=== PATIENT | female | born 1950 | race Two or more races ===

== ENCOUNTER → 2018-12-20 | Outpatient (CLI) | payer MEDICARE, BC ==
[2018-12-20 08:43] LABS: Urine Bacteria FEW /hpf (None Seen); Urine Blood Negative /uL (Negative); Urine Specific Gravity 1.009 (1.001-1.035); Urine WBC 7 /hpf (0 - 5)
[2018-12-20 09:02] LABS: Albumin 4.1 g/dL (3.4-5.0); Calcium 9.2 mg/dL (8.5-10.1); Uric Acid 6.9 mg/dL (2.6-6.0)
[2018-12-20 09:06] LABS: Bilirubin, Total 0.5 mg/dL (0.2-1.0); Total Protein 7.9 g/dL (6.4-8.2)
[2018-12-20 09:13] LABS: Folate (Folic Acid) 21.09 ng/mL (5.38-24)
[2018-12-20 09:21] LABS: BUN/Creatinine Ratio 19.4
[2018-12-20 11:47] LABS: Potassium 4.3 mmol/L (3.5-5.1)
== END | disposition home or self-care (01) ==
LOC: LAB 07:56
PROVIDERS: ATTEND Nurse Practitioner
DX: E78.5 Hyperlipidemia, unspecified (principal); E55.9 Vitamin D deficiency, unspecified; R79.89 Other specified abnormal findings of blood chemistry
CPT/HCPCS: 36415; 80053; 80061; 81001; 82306; 82607; 82746; 83036; 84443; 84550

== ENCOUNTER → 2019-02-21 | Outpatient (CLI) | payer MEDICARE, BC ==
[2019-02-21 08:44] LABS: Urine Bacteria FEW /hpf (None Seen); Urine Blood Negative /uL (Negative); Urine Specific Gravity 1.009 (1.001-1.035); Urine WBC 11 /hpf (0 - 5)
[2019-02-21 08:54] LABS: Basophils # (auto) 0.1 uL; Basophils % (auto) 1.1 % (0.0-2.0); Eosinophils # (auto) 0.2 uL; Hematocrit 41.5 % (36.0-46.0); Hemoglobin 14.3 g/dL (12.2-16.2); Lymphocytes # (auto) 1.4 uL; Mean Corpuscular Hemoglobin 29.5 pg (28.0-32.0); Mean Corpuscular Hgb Conc. 34.5 g/dL (32.0-36.0); Mean Corpuscular Volume 85.5 fL (80.0-100.0); Monocytes # (auto) 0.3 uL; Monocytes % (auto) 5.5 % (0.0-12.0); Neutrophils # (auto) 3.9 uL; Neutrophils % (auto) 66.4 % (37.0-80.0); Nucleated Red Blood Cells % 0.1 %; Platelet Count (auto) 228 10^3/uL (140-450); Red Blood Cells 4.85 10^6/uL (4.0-5.20); Red Cell Distribution Width 13.6 % (11.8-14.3); White Blood Cell 5.8 10^3/uL (4.4-10.8)
[2019-02-21 09:07] LABS: Albumin 3.8 g/dL (3.4-5.0); Calcium 9.5 mg/dL (8.5-10.1); Potassium 4.2 mmol/L (3.5-5.1)
[2019-02-21 09:13] LABS: BUN/Creatinine Ratio 19.2; Bilirubin, Total 0.5 mg/dL (0.2-1.0); Total Protein 7.8 g/dL (6.4-8.2)
== END | disposition home or self-care (01) ==
LOC: LAB 07:46
PROVIDERS: ATTEND Nurse Practitioner
DX: N39.0 Urinary tract infection, site not specified (principal); E78.5 Hyperlipidemia, unspecified
CPT/HCPCS: 36415; 80053; 80061; 81001; 85025; 87086; 87088; 87186

== ENCOUNTER → 2019-05-16 | Outpatient (CLI) | payer MEDICARE, BC ==
[2019-05-16 11:00] LABS: Free T3 2.84 pg/mL (2.3-4.2); Free T4 (Free Thyroxine) 1.51 ng/dL (0.89-1.76)
[2019-05-16 11:01] LABS: Folate (Folic Acid) 20.27 ng/mL (5.38-24)
[2019-05-16 12:06] LABS: Urine Bacteria FEW /hpf (None Seen); Urine Blood Negative /uL (Negative); Urine Specific Gravity 1.011 (1.001-1.035); Urine WBC 7 /hpf (0 - 5)
== END | disposition home or self-care (01) ==
LOC: LAB 09:27
PROVIDERS: ATTEND Nurse Practitioner
DX: N39.0 Urinary tract infection, site not specified (principal); E78.5 Hyperlipidemia, unspecified
CPT/HCPCS: 36415; 81001; 82607; 82746; 84439; 84443; 84481; 87086; 87088; 87186

== ENCOUNTER 2019-06-27 08:58 | Day surgery (SDC) | payer BC ==
[2019-06-23 13:09] LABS: Basophils # (auto) 0 uL; Basophils % (auto) 0.7 % (0.0-2.0); Eosinophils # (auto) 0.2 uL; Eosinophils % (auto) 2.6 % (0.0-7.0); Hematocrit 45.4 % (36.0-46.0); Hemoglobin 15.5 g/dL (12.2-16.2); Lymphocytes # (auto) 1.4 uL; Lymphocytes % (auto) 23.6 % (10.0-50.0); Mean Corpuscular Hemoglobin 29.1 pg (28.0-32.0); Mean Corpuscular Hgb Conc. 34.2 g/dL (32.0-36.0); Mean Corpuscular Volume 85.1 fL (80.0-100.0); Monocytes # (auto) 0.3 uL; Monocytes % (auto) 4.8 % (0.0-12.0); Neutrophils # (auto) 4.2 uL; Neutrophils % (auto) 68.3 % (37.0-80.0); Platelet Count (auto) 222 10^3/uL (140-450); Red Blood Cells 5.34 10^6/uL (4.0-5.20); White Blood Cell 6.1 10^3/uL (4.4-10.8)
[2019-06-23 13:30] LABS: INR 0.94 (0.9-1.15); Partial Thromboplastin Time 29.2 sec (23.64-32.05)
[~2019-06-27] VITALS: Ht 152.4 cm; Wt 83.9 kg
[2019-06-27] MEDS: fentaNYL CITRATE 100 MCG/2 ML VL ONE ×3 (09:53→10:07)
[2019-06-27] MEDS: MIDAZOLAM HCL 5 MG/ML-1ML VIAL ONE ×3 (09:53→10:07)
[2019-06-27] MEDS ORDERED: SODIUM CHLORIDE LOCK 10 ML ONE (10:07)
[2019-06-27] MEDS ORDERED: diphenhdrAMINE HCL 50 MG/1 ML VL ONE (10:08)
[2019-06-27 11:08] VITALS: BP 129/68
== END 2019-06-27 11:08 | disposition home or self-care (01) ==
LOC: GI 08:58
PROVIDERS: ATTEND Internal Medicine Gastroenterology
DX: K92.1 Melena (principal); K63.5 Polyp of colon; Z79.899 Other long term (current) drug therapy; Z79.82 Long term (current) use of aspirin; Z98.890 Other specified postprocedural states
CPT/HCPCS: 36415; 45385; 85025; 85610; 85730; 88305; 88313; J1200; J2250; J3010; J7030; 99152

== ENCOUNTER → 2019-08-05 | Day surgery (SDC) | payer BC ==
[2019-08-04 13:48] LABS: Basophils # (auto) 0.1 uL; Basophils % (auto) 1.1 % (0.0-2.0); Eosinophils # (auto) 0.1 uL; Hematocrit 43.4 % (36.0-46.0); Lymphocytes # (auto) 1.6 uL; Lymphocytes % (auto) 24.1 % (10.0-50.0); Mean Corpuscular Hemoglobin 29.5 pg (28.0-32.0); Mean Corpuscular Hgb Conc. 34.6 g/dL (32.0-36.0); Mean Corpuscular Volume 85.2 fL (80.0-100.0); Monocytes # (auto) 0.3 uL; Monocytes % (auto) 5.2 % (0.0-12.0); Neutrophils # (auto) 4.4 uL; Neutrophils % (auto) 67.6 % (37.0-80.0); Nucleated Red Blood Cells % 0.2 %; Platelet Count (auto) 266 10^3/uL (140-450); Red Blood Cells 5.09 10^6/uL (4.0-5.20); Red Cell Distribution Width 13.8 % (11.8-14.3); White Blood Cell 6.5 10^3/uL (4.4-10.8)
[2019-08-04 13:50] LABS: Urine Blood Negative /uL (Negative); Urine Specific Gravity 1.013 (1.001-1.035)
[2019-08-04 14:16] LABS: Calcium 9.1 mg/dL (8.5-10.1); Potassium 4.1 mmol/L (3.5-5.1)
[2019-08-04 14:22] LABS: BUN/Creatinine Ratio 14.9; Bilirubin, Total 0.3 mg/dL (0.2-1.0); Total Protein 8.3 g/dL (6.4-8.2)
[2019-08-04 14:38] LABS: INR 0.98 (0.9-1.15); Partial Thromboplastin Time 28.8 sec (23.64-32.05)
[~2019-08-05] VITALS: Ht 154.9 cm; Wt 85.3 kg
[~2019-08-05] MED LIST: AMLO10TA13 PO; ASPI-404 PO; GLYCOPYRROLATE 0.2 MG/ML 1ML VIAL ONE; HYDROmorphone HCL 2 MG/ML VL IV PRN; LEVO125T66 PO; LIDOCAINE 1% HCL (LOCAL ANESTH.) INJ 20ML MDV ONE; LIDOCAINE HCL 2% TOP JELLY 5ML TOP ONE; LIDOCAINE W/ EPINEPHRINE 1% 20ML VIAL ONE; LOSA-39 PO; MECL-87 PO; METOCLOPRAMIDE HCL 5MG/ml INJ 2ml VIAL ONE; MIDAZOLAM HCL 1MG/1ML-2 ML VIAL ONE; MORPHINE SULF(PF) 0.5MG/ML 10ML VIAL ONE; NALOXONE HCL 0.4 MG/ML VIAL IV PRN; NEOSTIGMINE 1 MG/ML INJ (10mg/10ML VIAL) ONE; ONDANSETRON HCL 4 MG/2 ML VIAL IV PRN; PROPOFOL 10 MG/ML 20 ML IV ONE; ROCURONIUM 10MG/ML 10ML VIAL IV ONE; SODIUM CHLORIDE LOCK 10 ML ONE; SUCCINYLCHOLINE CHLORIDE 20 MG/ML 10ML VIAL IV ONE; TRAM50TA2 PO; ceFAZolin 1GM/50ML 50 ML IV ONE; ePHEDrine SULFATE 50 MG/ML AMP IV PRN; ePHEDrine SULFATE 50 MG/ML AMP ONE; fentaNYL CITRATE 100 MCG/2 ML VL ONE
[2019-08-05 10:05] VITALS: BP 111/60
== END | disposition home or self-care (01) ==
LOC: SUR 06:31
PROVIDERS: ATTEND Orthopaedic Surgery
DX: S83.281A Other tear of lateral meniscus, current injury, right knee, initial encounter (principal); S83.241A Other tear of medial meniscus, current injury, right knee, initial encounter; M65.861 Other synovitis and tenosynovitis, right lower leg; E66.9 Obesity, unspecified; M22.41 Chondromalacia patellae, right knee; I10 Essential (primary) hypertension; M19.90 Unspecified osteoarthritis, unspecified site; G47.33 Obstructive sleep apnea (adult) (pediatric); I20.9 Angina pectoris, unspecified; E03.9 Hypothyroidism, unspecified; Z79.899 Other long term (current) drug therapy; Z79.82 Long term (current) use of aspirin; Z90.710 Acquired absence of both cervix and uterus; Z98.890 Other specified postprocedural states; Z68.35 Body mass index [BMI] 35.0-35.9, adult; X58.XXXA Exposure to other specified factors, initial encounter; Y93.89 Activity, other specified; Y92.89 Other specified places as the place of occurrence of the external cause; Y99.8 Other external cause status
CPT/HCPCS: 20610; 29876; 29880; 36415; 80053; 81003; 85025; 85610; 85730; 93005; J0330; J0690; J2001; J2250; J2270; J2704; J2765; J3010

== ENCOUNTER 2019-09-03 08:49 | Emergency (ER) | payer BC ==
[~2019-09-03] VITALS: Ht 154.9 cm; Wt 83.5 kg
[~2019-09-03 08:49] MED LIST changes: -GLYCOPYRROLATE 0.2 MG/ML 1ML VIAL ONE; -HYDROmorphone HCL 2 MG/ML VL IV PRN; -LIDOCAINE 1% HCL (LOCAL ANESTH.) INJ 20ML MDV ONE; -LIDOCAINE HCL 2% TOP JELLY 5ML TOP ONE; -LIDOCAINE W/ EPINEPHRINE 1% 20ML VIAL ONE; -METOCLOPRAMIDE HCL 5MG/ml INJ 2ml VIAL ONE; -MIDAZOLAM HCL 1MG/1ML-2 ML VIAL ONE; -MORPHINE SULF(PF) 0.5MG/ML 10ML VIAL ONE; -NALOXONE HCL 0.4 MG/ML VIAL IV PRN; -NEOSTIGMINE 1 MG/ML INJ (10mg/10ML VIAL) ONE; -ONDANSETRON HCL 4 MG/2 ML VIAL IV PRN; -PROPOFOL 10 MG/ML 20 ML IV ONE; -ROCURONIUM 10MG/ML 10ML VIAL IV ONE; -SODIUM CHLORIDE LOCK 10 ML ONE; -SUCCINYLCHOLINE CHLORIDE 20 MG/ML 10ML VIAL IV ONE; -ceFAZolin 1GM/50ML 50 ML IV ONE; -ePHEDrine SULFATE 50 MG/ML AMP IV PRN; -ePHEDrine SULFATE 50 MG/ML AMP ONE; -fentaNYL CITRATE 100 MCG/2 ML VL ONE
[2019-09-03 08:54] VITALS: BP 151/59
[2019-09-03] MEDS ORDERED: traMADol HCL 50 MG TAB PO ONE (10:30)
== END 2019-09-03 10:33 | disposition home or self-care (01) ==
LOC: ER 08:50
DX: S39.012A Strain of muscle, fascia and tendon of lower back, initial encounter (principal); E78.5 Hyperlipidemia, unspecified
CPT/HCPCS: 72100; 81002

== ENCOUNTER → 2019-09-23 | Outpatient (CLI) | payer BC ==
[2019-09-23 11:19] LABS: Basophils # (auto) 0 uL; Basophils % (auto) 0.8 % (0.0-2.0); Eosinophils # (auto) 0.1 uL; Eosinophils % (auto) 2.7 % (0.0-7.0); Hematocrit 44.9 % (36.0-46.0); Hemoglobin 15.4 g/dL (12.2-16.2); Lymphocytes # (auto) 1.2 uL; Lymphocytes % (auto) 23.5 % (10.0-50.0); Mean Corpuscular Hemoglobin 29.1 pg (28.0-32.0); Mean Corpuscular Hgb Conc. 34.3 g/dL (32.0-36.0); Mean Corpuscular Volume 84.8 fL (80.0-100.0); Monocytes # (auto) 0.3 uL; Monocytes % (auto) 5.1 % (0.0-12.0); Neutrophils # (auto) 3.4 uL; Neutrophils % (auto) 67.9 % (37.0-80.0); Nucleated Red Blood Cells % 0.1 %; Platelet Count (auto) 257 10^3/uL (140-450); Red Blood Cells 5.29 10^6/uL (4.0-5.20); Red Cell Distribution Width 13.7 % (11.8-14.3)
[2019-09-23 11:34] LABS: Calcium 9.4 mg/dL (8.5-10.1); Potassium 4.2 mmol/L (3.5-5.1)
[2019-09-23 11:38] LABS: Bilirubin, Total 0.5 mg/dL (0.2-1.0); Total Protein 8.4 g/dL (6.4-8.2)
[2019-09-23 11:41] LABS: Urine Bacteria MOD /hpf (None Seen); Urine Blood Negative /uL (Negative); Urine Specific Gravity 1.009 (1.001-1.035); Urine WBC 26 /hpf (0 - 5)
== END | disposition home or self-care (01) ==
LOC: LAB 10:59
PROVIDERS: ATTEND Student in an Organized Health Care Education/Training Program
DX: D63.1 Anemia in chronic kidney disease (principal); E21.3 Hyperparathyroidism, unspecified; N18.3 Chronic kidney disease, stage 3 (moderate); M10.9 Gout, unspecified; R80.9 Proteinuria, unspecified; E55.9 Vitamin D deficiency, unspecified
CPT/HCPCS: 36415; 80053; 81001; 82570; 84156; 85025; 87086

== ENCOUNTER → 2020-03-19 | Outpatient (CLI) | payer BC ==
[~2020-03-19] MED LIST changes: -MECL-87 PO; +MECL25TA18 PO
[2020-03-19 10:33] LABS: Basophils # (auto) 0.1 10 ^3/uL (0-0.2); Basophils % (auto) 1.5 % (0.0-2.0); Eosinophils # (auto) 0.2 10 ^3/uL (0-0.8); Eosinophils % (auto) 3.4 % (0.0-7.0); Hematocrit 42.3 % (36.0-46.0); Hemoglobin 14.5 g/dL (12.2-16.2); Lymphocytes # (auto) 1.5 10 ^3/uL (0.4-5.4); Lymphocytes % (auto) 26.4 % (10.0-50.0); Mean Corpuscular Hemoglobin 29.9 pg (28.0-32.0); Mean Corpuscular Hgb Conc. 34.3 g/dL (32.0-36.0); Mean Corpuscular Volume 87.2 fL (80.0-100.0); Monocytes # (auto) 0.4 10 ^3/uL (0-1.3); Monocytes % (auto) 6.2 % (0.0-12.0); Neutrophils # (auto) 3.6 10 ^3/uL (1.6-8.6); Neutrophils % (auto) 62.5 % (37.0-80.0); Nucleated Red Blood Cells % 0.1 %; Platelet Count (auto) 252 10^3/uL (140-450); Red Blood Cells 4.86 10^6/uL (4.0-5.20); Red Cell Distribution Width 14.2 % (11.8-14.3); White Blood Cell 5.7 10^3/uL (4.4-10.8)
[2020-03-19 10:42] LABS: Urine Bacteria FEW /hpf (None Seen); Urine Blood Negative /uL (Negative); Urine Specific Gravity 1.014 (1.001-1.035); Urine WBC 56 /hpf (0 - 5)
[2020-03-19 11:37] LABS: Albumin 3.7 g/dL (3.4-5.0); Calcium 9.3 mg/dL (8.5-10.1); Potassium 4.2 mmol/L (3.5-5.1)
[2020-03-19 11:42] LABS: BUN/Creatinine Ratio 19.6; Bilirubin, Total 0.5 mg/dL (0.2-1.0); Total Protein 7.8 g/dL (6.4-8.2)
== END | disposition home or self-care (01) ==
LOC: LAB 10:09
PROVIDERS: ATTEND Nurse Practitioner
DX: Z00.00 Encounter for general adult medical examination without abnormal findings (principal); E78.5 Hyperlipidemia, unspecified; N39.0 Urinary tract infection, site not specified
CPT/HCPCS: 36415; 80053; 80061; 81001; 84443; 85025; 87086

== ENCOUNTER → 2020-03-22 | Outpatient (CLI) | payer BC ==
[2020-03-22 09:34] LABS: Basophils # (auto) 0 10 ^3/uL (0-0.2); Basophils % (auto) 0.8 % (0.0-2.0); Eosinophils # (auto) 0.2 10 ^3/uL (0-0.8); Eosinophils % (auto) 2.9 % (0.0-7.0); Hematocrit 43.3 % (36.0-46.0); Hemoglobin 14.8 g/dL (12.2-16.2); Lymphocytes # (auto) 1.4 10 ^3/uL (0.4-5.4); Lymphocytes % (auto) 21.3 % (10.0-50.0); Mean Corpuscular Hemoglobin 29.7 pg (28.0-32.0); Mean Corpuscular Hgb Conc. 34.1 g/dL (32.0-36.0); Monocytes # (auto) 0.3 10 ^3/uL (0-1.3); Neutrophils # (auto) 4.6 10 ^3/uL (1.6-8.6); Platelet Count (auto) 244 10^3/uL (140-450); Red Blood Cells 4.98 10^6/uL (4.0-5.20); White Blood Cell 6.6 10^3/uL (4.4-10.8)
[2020-03-22 09:42] LABS: Urine Bacteria FEW /hpf (None Seen); Urine Blood Negative /uL (Negative); Urine Specific Gravity 1.014 (1.001-1.035); Urine WBC 28 /hpf (0 - 5); Urine WBC Clumps PRESENT /hpf (None Seen)
[2020-03-22 09:57] LABS: BUN/Creatinine Ratio 17.6; Calcium 9.4 mg/dL (8.5-10.1); Potassium 4.4 mmol/L (3.5-5.1)
== END | disposition home or self-care (01) ==
LOC: LAB 08:55
PROVIDERS: ATTEND Student in an Organized Health Care Education/Training Program
DX: N18.3 Chronic kidney disease, stage 3 (moderate) (principal); D63.1 Anemia in chronic kidney disease; E56.9 Vitamin deficiency, unspecified; E21.3 Hyperparathyroidism, unspecified; N39.0 Urinary tract infection, site not specified; R82.90 Unspecified abnormal findings in urine
CPT/HCPCS: 36415; 80048; 81001; 82306; 83970; 85025; 87086

== ENCOUNTER 2020-09-28 11:37 | Inpatient (IN) | payer BC ==
[~2020-09-28] VITALS: Ht 154.9 cm; Wt 82.9 kg
[~2020-09-28 11:37] MED LIST changes: -CARI100T PO
[2020-09-28 13:20] LABS: Basophils # (auto) 0.1 10 ^3/uL (0-0.2); Eosinophils # (auto) 0 10 ^3/uL (0-0.8); Hematocrit 45.3 % (36.0-46.0); Lymphocytes # (auto) 1.6 10 ^3/uL (0.4-5.4); Lymphocytes % (auto) 21.7 % (10.0-50.0); Mean Corpuscular Hemoglobin 30.1 pg (28.0-32.0); Mean Corpuscular Hgb Conc. 35.3 g/dL (32.0-36.0); Mean Corpuscular Volume 85.2 fL (80.0-100.0); Monocytes # (auto) 0.4 10 ^3/uL (0-1.3); Monocytes % (auto) 5.4 % (0.0-12.0); Neutrophils # (auto) 5.3 10 ^3/uL (1.6-8.6); Neutrophils % (auto) 71.9 % (37.0-80.0); Nucleated Red Blood Cells % 0.1 %; Platelet Count (auto) 278 10^3/uL (140-450); Red Blood Cells 5.32 10^6/uL (4.0-5.20); Red Cell Distribution Width 13.6 % (11.8-14.3); White Blood Cell 7.4 10^3/uL (4.4-10.8)
[2020-09-28 13:21] LABS: Albumin 4.1 g/dL (3.4-5.0); Anion Gap 8 (5-15); Blood Urea Nitrogen 15 mg/dL (7-18); Calcium 9.3 mg/dL (8.5-10.1); Carbon Dioxide 21 mmol/L (21-32); Chloride 108 mmol/L (98-107); Glucose 96 mg/dL (74-106); Potassium 4.1 mmol/L (3.5-5.1); Sodium 137 mmol/L (136-145)
[2020-09-28 13:30] LABS: Alanine Aminotransferase 21 U/L (13-56); Alkaline Phosphatase 111 U/L (45-117); Aspartate Aminotransferase 12 U/L (15-37); BUN/Creatinine Ratio 12.4; Bilirubin, Total 0.5 mg/dL (0.2-1.0); GFR African American 57 mL/min; GFR Non-African American 47 mL/min; Total Protein 8.7 g/dL (6.4-8.2)
[2020-09-28] MEDS ORDERED: ASPirin 81 mg TAB PO ONE (14:30)
[2020-09-28] MEDS ORDERED: MORPHINE SULF INJ 2 MG/ML SYRINGE 1ML IV PRN (14:30)
[2020-09-28] MEDS ORDERED: HYDROcodone-ACET 5/325MG TAB PO PRN (14:30)
[2020-09-28] MEDS ORDERED: NITROGLYCERIN 0.4 MG SL TAB SL PRN (14:30)
[2020-09-28] MEDS ORDERED: ONDANSETRON HCL 4 MG/2 ML VIAL IV PRN (14:30)
[2020-09-28] MEDS ORDERED: hydrALAZINE HCL 20 MG/ML VL IV PRN (14:30)
[2020-09-28] MEDS ORDERED: CARI100T PO (15:13)
[2020-09-28 15:54] LABS: CRP High Sensitivity 0.84 mg/dL (< 0.3)
[2020-09-28 22:00] VITALS: BP 131/58
[2020-09-28 22:15] VITALS: BP 131/58
[2020-09-28] MEDS: ATORVASTATIN 20 MG TAB PO SCH (23:00)
[2020-09-28] MEDS: DOCUSATE SOD 100 MG CAP PO SCH (23:01)
[2020-09-28] MEDS: METOPROLOL TARTRATE 25 MG TAB PO SCH (23:01)
[2020-09-29 05:00] VITALS: BP 112/59
[2020-09-29 07:08] LABS: Potassium 4.3 mmol/L (3.5-5.1)
[2020-09-29 07:15] LABS: BUN/Creatinine Ratio 18.5; Calcium 8.8 mg/dL (8.5-10.1)
[2020-09-29 07:41] LABS: Basophils # (auto) 0.1 10 ^3/uL (0-0.2); Basophils % (auto) 1.2 % (0.0-2.0); Eosinophils # (auto) 0 10 ^3/uL (0-0.8); Eosinophils % (auto) 0.1 % (0.0-7.0); Hemoglobin 15.5 g/dL (12.2-16.2); Lymphocytes # (auto) 2.1 10 ^3/uL (0.4-5.4); Lymphocytes % (auto) 35.4 % (10.0-50.0); Mean Corpuscular Hemoglobin 29.5 pg (28.0-32.0); Mean Corpuscular Hgb Conc. 34.5 g/dL (32.0-36.0); Mean Corpuscular Volume 85.7 fL (80.0-100.0); Monocytes # (auto) 0.4 10 ^3/uL (0-1.3); Monocytes % (auto) 6.5 % (0.0-12.0); Neutrophils # (auto) 3.4 10 ^3/uL (1.6-8.6); Neutrophils % (auto) 56.8 % (37.0-80.0); Nucleated Red Blood Cells % 0.1 %; Platelet Count (auto) 250 10^3/uL (140-450); Red Blood Cells 5.26 10^6/uL (4.0-5.20); Red Cell Distribution Width 13.4 % (11.8-14.3)
[2020-09-29 08:00] VITALS: BP 135/55
[2020-09-29] MEDS ORDERED: ADENOSINE 66 MG in GIVE UN-DILUTED 0 ML IV STA (08:15)
[2020-09-29 08:34] LABS: INR 0.98 (0.9-1.15); Partial Thromboplastin Time 30.4 sec (23.0-31.2)
[2020-09-29] MEDS: DOCUSATE SOD 100 MG CAP PO SCH ×2 (10:00→11:58)
[2020-09-29] MEDS: FAMOTIDINE 20 MG TAB PO SCH (11:59)
[2020-09-29] MEDS: ASPirin-EC 81 mg tab PO SCH (11:59)
[2020-09-29] MEDS: ACETAMINOPHEN 500 MG TAB PO PRN (12:00)
[2020-09-29] MEDS: METOPROLOL TARTRATE 25 MG TAB PO SCH (12:07)
[2020-09-29] MEDS: LISINOPRIL 10 MG TAB PO SCH (12:07)
[2020-09-29] MEDS: NITROGLYCERIN 0.4MG/HR TOPICAL PATCH TD SCH (12:08)
[2020-09-29] MEDS: SODIUM CHLORIDE 0.9% 1,000 ML IV SCH ×2 (13:00→22:29)
[2020-09-29 14:58] LABS: Urine Bacteria NONE SEEN /hpf (None Seen); Urine Blood Negative /uL (Negative); Urine Hyaline Cast FEW /lpf (0 - 2); Urine Specific Gravity 1.012 (1.001-1.035); Urine WBC 1 /hpf (0 - 5)
[2020-09-29 15:28] LABS: Creatinine, Urine 46 mg/dL (30.0-125.0); Sodium Urine 123 mmol/L (40-220)
[2020-09-29 15:59] VITALS: BP 115/50
[2020-09-29] MEDS: ACETAMINOPHEN/CODEINE#3 (300/30mg) TAB PO PRN (17:30)
[2020-09-29] MEDS ORDERED: diphenhdrAMINE HCL 25 MG CAP PO PRN (18:00)
[2020-09-29] MEDS: ATORVASTATIN 20 MG TAB PO SCH (22:27)
[2020-09-30] MEDS: MORPHINE SULF INJ 2 MG/ML SYRINGE 1ML IV PRN ×2 (00:06→09:36)
[2020-09-30 00:25] VITALS: BP 101/63
[2020-09-30] MEDS: ACETAMINOPHEN/CODEINE#3 (300/30mg) TAB PO PRN (02:32)
[2020-09-30 05:00] VITALS: BP 102/49
[2020-09-30 06:00] VITALS: BP 123/78
[2020-09-30] MEDS: ASPirin-EC 81 mg tab PO SCH (10:00)
[2020-09-30] MEDS: FAMOTIDINE 20 MG TAB PO SCH (10:00)
[2020-09-30] MEDS: LISINOPRIL 10 MG TAB PO SCH (10:00)
[2020-09-30] MEDS ORDERED: METOPROLOL TARTRATE 25 MG TAB PO SCH (10:00)
[2020-09-30] MEDS: NITROGLYCERIN 0.4MG/HR TOPICAL PATCH TD SCH (10:00)
[2020-09-30] MEDS: DOCUSATE SOD 100 MG CAP PO SCH (10:00)
[2020-09-30] MEDS ORDERED: LIDOCAINE 2%HCL (LOCAL ANESTH.) INJ 20ML MDV ONE (11:42)
[2020-09-30] MEDS ORDERED: diphenhdrAMINE HCL 50 MG/1 ML VL ONE (12:06)
[2020-09-30] MEDS ORDERED: fentaNYL CITRATE 100 MCG/2 ML VL ONE (12:06)
[2020-09-30] MEDS ORDERED: VERAPAMIL 2.5MG/ML INJ 2ML VIAL IV ONE (12:29)
[2020-09-30] MEDS ORDERED: HEPARIN SODIUM (PORCINE) 5000 UNITS/ML 1ML VIAL ONE (12:29)
[2020-09-30] MEDS ORDERED: IOHEXOL 350 MG/ML 100ML IJ ONE (12:33)
[2020-09-30] MEDS ORDERED: SODIUM CHLORIDE 0.9% 500 ML IV ONE (13:45)
[2020-09-30] MEDS: ACETAMINOPHEN 500 MG TAB PO PRN (15:08)
[2020-09-30 15:23] VITALS: BP 123/78
[2020-09-30] MEDS: SODIUM CHLORIDE 0.9% 1,000 ML IV SCH (15:40)
== END 2020-09-30 17:30 | disposition home or self-care (01) | DRG 287 ==
LOC: ER 11:37 → TELE 11:38 → TELE-CENTR 21:47
PROVIDERS: ADMIT Nurse Practitioner Acute Care; ATTEND Internal Medicine
PROC: 05HA33Z Insertion of Infusion Device into Left Brachial Vein, Percutaneous Approach (ICD-10-PCS; 2020-09-29)
PROC: B54NZZA Ultrasonography of Left Upper Extremity Veins, Guidance (ICD-10-PCS; 2020-09-29)
PROC: 4A023N7 Measurement of Cardiac Sampling and Pressure, Left Heart, Percutaneous Approach (ICD-10-PCS; principal; 2020-09-30)
PROC: B2111ZZ Fluoroscopy of Multiple Coronary Arteries using Low Osmolar Contrast (ICD-10-PCS; 2020-09-30)
PROC: B2151ZZ Fluoroscopy of Left Heart using Low Osmolar Contrast (ICD-10-PCS; 2020-09-30)
DX: I24.9 Acute ischemic heart disease, unspecified (principal); E03.9 Hypothyroidism, unspecified; N18.31 Chronic kidney disease, stage 3a; E66.9 Obesity, unspecified; E78.5 Hyperlipidemia, unspecified; I12.9 Hypertensive chronic kidney disease with stage 1 through stage 4 chronic kidney disease, or unspecified chronic kidney disease; Z20.822 Contact with and (suspected) exposure to COVID-19; Z80.3 Family history of malignant neoplasm of breast; Z85.828 Personal history of other malignant neoplasm of skin; Z90.5 Acquired absence of kidney; Z90.710 Acquired absence of both cervix and uterus; Z90.49 Acquired absence of other specified parts of digestive tract; Z68.32 Body mass index [BMI] 32.0-32.9, adult; Z88.8 Allergy status to other drugs, medicaments and biological substances
CPT/HCPCS: 36415; 71045; 78452; 80048; 80053; 80061; 81001; 82570; 83036; 83880; 84300; 84443; 84484; 85025; 85379; 85610; 85730; 86141; 87426; 93005; 93017; 93306; 99152; G0378; J0153

== ENCOUNTER → 2020-09-28 | Outpatient (CLI) | payer BC ==
[~2020-09-28] MED LIST changes: +AMLO-496 PO; -AMLO10TA13 PO; -ASPI-404 PO; +ASPI-543 PO; +CARI100T PO; +LEVO125T PO; -LEVO125T66 PO
[2020-09-28 11:13] LABS: Basophils # (auto) 0 10 ^3/uL (0-0.2); Basophils % (auto) 0.7 % (0.0-2.0); Eosinophils # (auto) 0 10 ^3/uL (0-0.8); Hemoglobin 15.2 g/dL (12.2-16.2); Lymphocytes # (auto) 1.4 10 ^3/uL (0.4-5.4); Lymphocytes % (auto) 23.5 % (10.0-50.0); Mean Corpuscular Hemoglobin 29.9 pg (28.0-32.0); Mean Corpuscular Hgb Conc. 34.6 g/dL (32.0-36.0); Mean Corpuscular Volume 86.2 fL (80.0-100.0); Monocytes # (auto) 0.3 10 ^3/uL (0-1.3); Monocytes % (auto) 5.1 % (0.0-12.0); Neutrophils # (auto) 4.2 10 ^3/uL (1.6-8.6); Neutrophils % (auto) 70.7 % (37.0-80.0); Nucleated Red Blood Cells % 0.2 %; Platelet Count (auto) 275 10^3/uL (140-450); Red Blood Cells 5.11 10^6/uL (4.0-5.20); Red Cell Distribution Width 13.2 % (11.8-14.3); White Blood Cell 5.9 10^3/uL (4.4-10.8)
[2020-09-28 12:11] LABS: Albumin 3.9 g/dL (3.4-5.0); Calcium 9.1 mg/dL (8.5-10.1); Potassium 4.3 mmol/L (3.5-5.1)
[2020-09-28 12:15] LABS: BUN/Creatinine Ratio 12.4; Bilirubin, Total 0.5 mg/dL (0.2-1.0); Phosphorus 3.2 mg/dL (2.5-4.90); Total Protein 8.5 g/dL (6.4-8.2); Uric Acid 6.7 mg/dL (2.6-6.0)
== END | disposition home or self-care (01) ==
LOC: LAB 10:36
PROVIDERS: ATTEND Internal Medicine Nephrology
DX: N18.30 Chronic kidney disease, stage 3 unspecified (principal); D63.1 Anemia in chronic kidney disease; E21.3 Hyperparathyroidism, unspecified; M10.9 Gout, unspecified
CPT/HCPCS: 36415; 80053; 80069; 82306; 83970; 84550; 85025

== ENCOUNTER → 2020-12-03 | Outpatient (CLI) | payer BC ==
[~2020-12-03] MED LIST changes: +CARI100T PO; -MECL25TA18 PO
[2020-12-03 16:02] LABS: BUN/Creatinine Ratio 12.5; Calcium 9.3 mg/dL (8.5-10.1); Potassium 3.9 mmol/L (3.5-5.1)
== END | disposition home or self-care (01) ==
LOC: LAB 14:03
PROVIDERS: ATTEND Student in an Organized Health Care Education/Training Program
DX: N39.0 Urinary tract infection, site not specified (principal); M25.50 Pain in unspecified joint
CPT/HCPCS: 36415; 80048; 87086

== ENCOUNTER → 2021-03-18 | Outpatient (CLI) | payer MEDICARE, OTHER ==
[2021-03-18 15:03] LABS: BUN/Creatinine Ratio 19.1; Calcium 9.6 mg/dL (8.5-10.1); Potassium 4.3 mmol/L (3.5-5.1)
== END | disposition home or self-care (01) ==
LOC: LAB 13:54
PROVIDERS: ATTEND Student in an Organized Health Care Education/Training Program
DX: N39.0 Urinary tract infection, site not specified (principal); E03.8 Other specified hypothyroidism
CPT/HCPCS: 36415; 80048; 84443; 87086

== ENCOUNTER → 2021-08-06 | Outpatient (CLI) | payer OTHER, MEDICARE ==
[2021-08-06 11:32] LABS: Basophils # (auto) 0.1 10 ^3/uL (0-0.2); Basophils % (auto) 1.5 % (0.0-2.0); Eosinophils # (auto) 0.2 10 ^3/uL (0-0.8); Eosinophils % (auto) 3.5 % (0.0-7.0); Hematocrit 43.4 % (36.0-46.0); Hemoglobin 14.9 g/dL (12.2-16.2); Lymphocytes # (auto) 1.3 10 ^3/uL (0.4-5.4); Lymphocytes % (auto) 24.7 % (10.0-50.0); Mean Corpuscular Hemoglobin 29.2 pg (28.0-32.0); Mean Corpuscular Hgb Conc. 34.2 g/dL (32.0-36.0); Mean Corpuscular Volume 85.3 fL (80.0-100.0); Monocytes # (auto) 0.3 10 ^3/uL (0-1.3); Monocytes % (auto) 6.2 % (0.0-12.0); Neutrophils # (auto) 3.3 10 ^3/uL (1.6-8.6); Neutrophils % (auto) 64.1 % (37.0-80.0); Nucleated Red Blood Cells % 0.1 %; Red Blood Cells 5.09 10^6/uL (4.0-5.20); Red Cell Distribution Width 13.8 % (11.8-14.3); White Blood Cell 5.2 10^3/uL (4.4-10.8)
[2021-08-06 11:46] LABS: Albumin 3.9 g/dL (3.4-5.0); Calcium 8.8 mg/dL (8.5-10.1); Potassium 4.1 mmol/L (3.5-5.1)
[2021-08-06 11:50] LABS: BUN/Creatinine Ratio 15.7; Bilirubin, Total 0.5 mg/dL (0.2-1.0); Total Protein 7.7 g/dL (6.4-8.2)
== END | disposition home or self-care (01) ==
LOC: LAB 10:15
PROVIDERS: ATTEND Student in an Organized Health Care Education/Training Program
DX: I10 Essential (primary) hypertension (principal); E03.8 Other specified hypothyroidism; N39.0 Urinary tract infection, site not specified
CPT/HCPCS: 36415; 80053; 84443; 85025; 87086

== ENCOUNTER → 2021-08-15 | Outpatient (CLI) | payer OTHER ==
[2021-08-15 12:17] LABS: Basophils # (auto) 0.1 10 ^3/uL (0-0.2); Eosinophils # (auto) 0.2 10 ^3/uL (0-0.8); Eosinophils % (auto) 2.7 % (0.0-7.0); Hematocrit 43.8 % (36.0-46.0); Hemoglobin 14.9 g/dL (12.2-16.2); Lymphocytes # (auto) 1.3 10 ^3/uL (0.4-5.4); Lymphocytes % (auto) 22.7 % (10.0-50.0); Mean Corpuscular Hemoglobin 28.7 pg (28.0-32.0); Mean Corpuscular Volume 84.3 fL (80.0-100.0); Monocytes # (auto) 0.3 10 ^3/uL (0-1.3); Monocytes % (auto) 4.7 % (0.0-12.0); Neutrophils % (auto) 68.9 % (37.0-80.0); Nucleated Red Blood Cells % 0.1 %; Red Cell Distribution Width 13.9 % (11.8-14.3); White Blood Cell 5.8 10^3/uL (4.4-10.8)
[2021-08-15 12:30] LABS: INR 1.01 (0.9-1.15); Partial Thromboplastin Time 28.1 sec (23.6-33.0)
[2021-08-15 12:37] LABS: Calcium 9.1 mg/dL (8.5-10.1); Potassium 4.2 mmol/L (3.5-5.1)
[2021-08-15 12:39] LABS: BUN/Creatinine Ratio 18.9; Bilirubin, Total 0.5 mg/dL (0.2-1.0); Total Protein 7.7 g/dL (6.4-8.2)
[2021-08-15 13:35] LABS: Urine Bacteria FEW /hpf (None Seen); Urine Blood Negative /uL (Negative); Urine Specific Gravity 1.013 (1.001-1.035); Urine WBC <1 /hpf (0 - 5)
== END | disposition home or self-care (01) ==
LOC: SUR 11:45 → EDSTATUS 08-18 10:31 → SUR 08-18 10:32
PROVIDERS: ATTEND Urology
DX: N35.92 Unspecified urethral stricture, female (principal); Z53.8 Procedure and treatment not carried out for other reasons; Z90.710 Acquired absence of both cervix and uterus; Z80.3 Family history of malignant neoplasm of breast; Z20.822 Contact with and (suspected) exposure to COVID-19
CPT/HCPCS: 36415; 80053; 81001; 85025; 85610; 85730; U0003

== ENCOUNTER → 2021-09-15 | Day surgery (SDC) | payer OTHER ==
[2021-09-12 11:41] LABS: Basophils # (auto) 0.1 10 ^3/uL (0-0.2); Eosinophils # (auto) 0.1 10 ^3/uL (0-0.8); Eosinophils % (auto) 2.3 % (0.0-7.0); Hematocrit 41.8 % (36.0-46.0); Hemoglobin 14.2 g/dL (12.2-16.2); Lymphocytes # (auto) 1.3 10 ^3/uL (0.4-5.4); Lymphocytes % (auto) 21.4 % (10.0-50.0); Mean Corpuscular Hemoglobin 28.9 pg (28.0-32.0); Mean Corpuscular Hgb Conc. 34.1 g/dL (32.0-36.0); Mean Corpuscular Volume 84.8 fL (80.0-100.0); Monocytes # (auto) 0.4 10 ^3/uL (0-1.3); Monocytes % (auto) 6.3 % (0.0-12.0); Neutrophils # (auto) 4.4 10 ^3/uL (1.6-8.6); Nucleated Red Blood Cells % 0.1 %; Red Blood Cells 4.92 10^6/uL (4.0-5.20); Red Cell Distribution Width 13.6 % (11.8-14.3); White Blood Cell 6.3 10^3/uL (4.4-10.8)
[2021-09-12 12:02] LABS: Urine Bacteria NONE SEEN /hpf (None Seen); Urine Blood Negative /uL (Negative); Urine Specific Gravity 1.019 (1.001-1.035); Urine WBC 40 /hpf (0 - 5)
[2021-09-12 12:44] LABS: Potassium 4.3 mmol/L (3.5-5.1)
[2021-09-12 13:01] LABS: Albumin 4.1 g/dL (3.4-5.0); BUN/Creatinine Ratio 16.1; Bilirubin, Total 0.3 mg/dL (0.2-1.0); Total Protein 7.8 g/dL (6.4-8.2)
[~2021-09-15] VITALS: Ht 152.4 cm; Wt 90.3 kg
[~2021-09-15] MED LIST changes: +CHOL20007 PO; +CYAN1TAB14 PO; +HYDROmorphone HCL 2 MG/ML VL IV PRN; +METOCLOPRAMIDE HCL 5MG/ml INJ 2ml VIAL IV PRN; +MIDAZOLAM HCL 2MG/2ML 2ml VIAL (1mg/ml) ONE; +MORPHINE SULFATE 4 MG/ML SYR/VIAL IV PRN; +ONDANSETRON HCL 4 MG/2 ML VIAL ONE; +PROPOFOL 10 MG/ML 20 ML IV ONE; +SODIUM CHLORIDE LOCK 10 ML ONE; +ceFAZolin 1GM/50ML 100 ML IV ONE; +fentaNYL CITRATE 100 MCG/2 ML VL ONE
[2021-09-15 14:45] VITALS: BP 135/70
== END | disposition home or self-care (01) ==
LOC: SUR 07:34
PROVIDERS: ATTEND Urology
DX: N34.3 Urethral syndrome, unspecified (principal); N35.92 Unspecified urethral stricture, female; I10 Essential (primary) hypertension; I25.110 Atherosclerotic heart disease of native coronary artery with unstable angina pectoris; E66.01 Morbid (severe) obesity due to excess calories; E03.9 Hypothyroidism, unspecified; Z98.890 Other specified postprocedural states; Z90.710 Acquired absence of both cervix and uterus; Z80.3 Family history of malignant neoplasm of breast; Z79.899 Other long term (current) drug therapy; Z20.822 Contact with and (suspected) exposure to COVID-19; Z68.38 Body mass index [BMI] 38.0-38.9, adult
CPT/HCPCS: 36415; 52276; 80053; 81001; 85025; J0690; J2405; J2704; J3010; U0003; J2250

== ENCOUNTER → 2021-11-11 | Outpatient (CLI) | payer OTHER, MEDICARE ==
[~2021-11-11] MED LIST changes: -HYDROmorphone HCL 2 MG/ML VL IV PRN; -METOCLOPRAMIDE HCL 5MG/ml INJ 2ml VIAL IV PRN; -MIDAZOLAM HCL 2MG/2ML 2ml VIAL (1mg/ml) ONE; -MORPHINE SULFATE 4 MG/ML SYR/VIAL IV PRN; -ONDANSETRON HCL 4 MG/2 ML VIAL ONE; -PROPOFOL 10 MG/ML 20 ML IV ONE; -SODIUM CHLORIDE LOCK 10 ML ONE; -ceFAZolin 1GM/50ML 100 ML IV ONE; -fentaNYL CITRATE 100 MCG/2 ML VL ONE
[2021-11-11 11:21] LABS: Urine Blood Negative /uL (Negative); Urine Specific Gravity 1.011 (1.001-1.035)
[2021-11-11 11:26] LABS: Basophils # (auto) 0 10 ^3/uL (0-0.2); Basophils % (auto) 0.9 % (0.0-2.0); Eosinophils # (auto) 0.2 10 ^3/uL (0-0.8); Eosinophils % (auto) 3.6 % (0.0-7.0); Hematocrit 41.3 % (36.0-46.0); Hemoglobin 14.2 g/dL (12.2-16.2); Lymphocytes # (auto) 1.2 10 ^3/uL (0.4-5.4); Lymphocytes % (auto) 22.2 % (10.0-50.0); Mean Corpuscular Hemoglobin 29.4 pg (28.0-32.0); Mean Corpuscular Hgb Conc. 34.5 g/dL (32.0-36.0); Mean Corpuscular Volume 85.2 fL (80.0-100.0); Monocytes # (auto) 0.3 10 ^3/uL (0-1.3); Monocytes % (auto) 5.5 % (0.0-12.0); Neutrophils # (auto) 3.7 10 ^3/uL (1.6-8.6); Neutrophils % (auto) 67.8 % (37.0-80.0); Nucleated Red Blood Cells % 0.1 %; Red Blood Cells 4.85 10^6/uL (4.0-5.20); Red Cell Distribution Width 13.5 % (11.8-14.3); White Blood Cell 5.5 10^3/uL (4.4-10.8)
[2021-11-11 12:22] LABS: Potassium 4.1 mmol/L (3.5-5.1)
[2021-11-11 12:30] LABS: Albumin 3.7 g/dL (3.4-5.0); BUN/Creatinine Ratio 19.8; Bilirubin, Total 0.4 mg/dL (0.2-1.0); Calcium 9.5 mg/dL (8.5-10.1); Creatinine, Urine 64 mg/dL (30.0-125.0); Protein, Urine 10.7 mg/dL (0.0-11.9); Total Protein 7.6 g/dL (6.4-8.2)
[2021-11-11 16:55] LABS: Urine Bacteria FEW /hpf (None Seen); Urine Blood Negative /uL (Negative); Urine Mucus FEW (None Seen); Urine Specific Gravity 1.012 (1.001-1.035); Urine WBC 1 /hpf (0 - 5)
== END | disposition home or self-care (01) ==
LOC: LAB 09:42
PROVIDERS: ATTEND Student in an Organized Health Care Education/Training Program
DX: N18.30 Chronic kidney disease, stage 3 unspecified (principal); D63.1 Anemia in chronic kidney disease; M10.9 Gout, unspecified; R80.9 Proteinuria, unspecified; R70.0 Elevated erythrocyte sedimentation rate; E21.3 Hyperparathyroidism, unspecified
CPT/HCPCS: 36415; 80053; 80061; 81001; 81003; 82570; 84156; 84443; 85025; 85652; 87086

== ENCOUNTER → 2022-05-22 | Outpatient (CLI) | payer OTHER ==
[2022-05-22 10:16] LABS: Basophils # (auto) 0.1 10 ^3/uL (0-0.2); Basophils % (auto) 0.8 % (0.0-2.0); Eosinophils # (auto) 0.2 10 ^3/uL (0-0.8); Eosinophils % (auto) 2.5 % (0.0-7.0); Hematocrit 43.2 % (36.0-46.0); Hemoglobin 14.4 g/dL (12.2-16.2); Lymphocytes # (auto) 1.3 10 ^3/uL (0.4-5.4); Lymphocytes % (auto) 17.2 % (10.0-50.0); Mean Corpuscular Hemoglobin 28.6 pg (28.0-32.0); Mean Corpuscular Hgb Conc. 33.4 g/dL (32.0-36.0); Mean Corpuscular Volume 85.6 fL (80.0-100.0); Monocytes # (auto) 0.4 10 ^3/uL (0-1.3); Monocytes % (auto) 4.8 % (0.0-12.0); Neutrophils # (auto) 5.5 10 ^3/uL (1.6-8.6); Neutrophils % (auto) 74.7 % (37.0-80.0); Nucleated Red Blood Cells % 0.1 %; Red Blood Cells 5.04 10^6/uL (4.0-5.20); White Blood Cell 7.4 10^3/uL (4.4-10.8)
[2022-05-22 10:17] LABS: Urine Bacteria FEW /hpf (None Seen); Urine Blood Negative /uL (Negative); Urine Specific Gravity 1.016 (1.001-1.035); Urine WBC 3 /hpf (0 - 5)
[2022-05-22 10:39] LABS: Calcium 9.3 mg/dL (8.5-10.1); Potassium 3.9 mmol/L (3.5-5.1)
[2022-05-22 10:52] LABS: BUN/Creatinine Ratio 18.3; Bilirubin, Total 0.5 mg/dL (0.2-1.0); CRP High Sensitivity 1.38 mg/dL (< 0.3); Total Protein 7.8 g/dL (6.4-8.2)
== END | disposition home or self-care (01) ==
LOC: LAB 09:39
PROVIDERS: ATTEND Student in an Organized Health Care Education/Training Program
DX: N18.30 Chronic kidney disease, stage 3 unspecified (principal); E03.8 Other specified hypothyroidism; N39.0 Urinary tract infection, site not specified; E07.89 Other specified disorders of thyroid
CPT/HCPCS: 36415; 80053; 80061; 81001; 84443; 85025; 85652; 86141; 87086

== ENCOUNTER → 2022-08-17 | Outpatient (CLI) | payer OTHER ==
[2022-08-17 10:03] LABS: Basophils # (auto) 0.1 10 ^3/uL (0-0.2); Basophils % (auto) 1.2 % (0.0-2.0); Eosinophils # (auto) 0.1 10 ^3/uL (0-0.8); Eosinophils % (auto) 2.6 % (0.0-7.0); Hematocrit 43.5 % (36.0-46.0); Hemoglobin 14.7 g/dL (12.2-16.2); Lymphocytes # (auto) 1.2 10 ^3/uL (0.4-5.4); Lymphocytes % (auto) 22.1 % (10.0-50.0); Mean Corpuscular Hemoglobin 29.2 pg (28.0-32.0); Mean Corpuscular Hgb Conc. 33.8 g/dL (32.0-36.0); Mean Corpuscular Volume 86.2 fL (80.0-100.0); Monocytes # (auto) 0.4 10 ^3/uL (0-1.3); Monocytes % (auto) 6.8 % (0.0-12.0); Neutrophils # (auto) 3.8 10 ^3/uL (1.6-8.6); Neutrophils % (auto) 67.3 % (37.0-80.0); Nucleated Red Blood Cells % 0.1 %; Red Blood Cells 5.06 10^6/uL (4.0-5.20); Red Cell Distribution Width 13.6 % (11.8-14.3); White Blood Cell 5.7 10^3/uL (4.4-10.8)
[2022-08-17 10:40] LABS: Albumin 3.6 g/dL (3.4-5.0); Calcium 9.1 mg/dL (8.5-10.1)
[2022-08-17 10:50] LABS: Bilirubin, Total 0.4 mg/dL (0.2-1.0); Total Protein 7.6 g/dL (6.4-8.2)
[2022-08-17 12:32] LABS: BUN/Creatinine Ratio 17.8
== END | disposition home or self-care (01) ==
LOC: LAB 09:42
PROVIDERS: ATTEND Student in an Organized Health Care Education/Training Program
DX: L40.50 Arthropathic psoriasis, unspecified (principal); N39.0 Urinary tract infection, site not specified; Z79.899 Other long term (current) drug therapy
CPT/HCPCS: 36415; 80053; 85025; 86141; 87086

== ENCOUNTER → 2023-01-02 | Outpatient (CLI) | payer OTHER ==
[2023-01-02 10:18] LABS: Urine Bacteria NONE SEEN /hpf (None Seen); Urine Blood Negative /uL (Negative); Urine Specific Gravity 1.014 (1.001-1.035); Urine WBC 2 /hpf (0 - 5)
[2023-01-02 10:29] LABS: Basophils # (auto) 0 10 ^3/uL (0-0.2); Basophils % (auto) 0.7 % (0.0-2.0); Eosinophils # (auto) 0.1 10 ^3/uL (0-0.8); Eosinophils % (auto) 2.5 % (0.0-7.0); Hematocrit 43.5 % (36.0-46.0); Hemoglobin 14.8 g/dL (12.2-16.2); Lymphocytes # (auto) 1.5 10 ^3/uL (0.4-5.4); Lymphocytes % (auto) 27.2 % (10.0-50.0); Mean Corpuscular Hemoglobin 28.7 pg (28.0-32.0); Mean Corpuscular Hgb Conc. 33.9 g/dL (32.0-36.0); Mean Corpuscular Volume 84.7 fL (80.0-100.0); Monocytes # (auto) 0.3 10 ^3/uL (0-1.3); Monocytes % (auto) 4.9 % (0.0-12.0); Neutrophils # (auto) 3.6 10 ^3/uL (1.6-8.6); Neutrophils % (auto) 64.7 % (37.0-80.0); Nucleated Red Blood Cells % 0.4 %; Red Blood Cells 5.14 10^6/uL (4.0-5.20); Red Cell Distribution Width 13.7 % (11.8-14.3); White Blood Cell 5.5 10^3/uL (4.4-10.8)
[2023-01-02 11:19] LABS: BUN/Creatinine Ratio 19.6 (10.0-20.0); Calcium 9.5 mg/dL (8.5-10.1); Potassium 4.4 mmol/L (3.5-5.1)
[2023-01-02 11:22] LABS: Bilirubin, Total 0.4 mg/dL (0.2-1.0)
== END | disposition home or self-care (01) ==
LOC: LAB 09:39
PROVIDERS: ATTEND Student in an Organized Health Care Education/Training Program
DX: I10 Essential (primary) hypertension (principal); N39.0 Urinary tract infection, site not specified; R73.9 Hyperglycemia, unspecified
CPT/HCPCS: 36415; 80053; 80061; 81001; 83036; 85025; 87086

== ENCOUNTER → 2023-06-25 | Outpatient (CLI) | payer OTHER ==
[~2023-06-25] MED LIST changes: -AMLO-496 PO; +AMLO1TAB23 PO; -LOSA-39 PO; +LOSA100T58 PO
[2023-06-25 15:34] LABS: Basophils # (auto) 0.1 10 ^3/uL (0-0.2); Basophils % (auto) 0.9 % (0.0-2.0); Eosinophils # (auto) 0.3 10 ^3/uL (0-0.8); Eosinophils % (auto) 3.9 % (0.0-7.0); Hematocrit 43.2 % (36.0-46.0); Hemoglobin 14.7 g/dL (12.2-16.2); Lymphocytes # (auto) 1.9 10 ^3/uL (0.4-5.4); Lymphocytes % (auto) 25.5 % (10.0-50.0); Mean Corpuscular Hemoglobin 28.7 pg (28.0-32.0); Mean Corpuscular Hgb Conc. 33.9 g/dL (32.0-36.0); Mean Corpuscular Volume 84.7 fL (80.0-100.0); Monocytes # (auto) 0.5 10 ^3/uL (0-1.3); Neutrophils # (auto) 4.6 10 ^3/uL (1.6-8.6); Neutrophils % (auto) 62.7 % (37.0-80.0); Nucleated Red Blood Cells % 0.2 %; Red Cell Distribution Width 14.4 % (11.8-14.3); White Blood Cell 7.3 10^3/uL (4.4-10.8)
[2023-06-25 15:55] LABS: Urine Bacteria FEW /hpf (None Seen); Urine Blood Negative /uL (Negative); Urine Clarity Clear (Clear); Urine Color Yellow (Yellow); Urine Protein, UAD Negative (Negative); Urine Specific Gravity 1.014 (1.001-1.035); Urine Urobilinogen Normal (Negative); Urine WBC 8 /hpf (0 - 5); Urine pH 5.5 (5.0-8.0)
[2023-06-25 16:06] LABS: Alanine Aminotransferase 12 U/L (7-40); Albumin 4.6 g/dL (3.2-4.8); Alkaline Phosphatase 121 U/L (46-116); Anion Gap 6 (5-15); Aspartate Aminotransferase < 8 U/L (13-40); Blood Urea Nitrogen 17 mg/dL (9-23); Calcium 9.8 mg/dL (8.7-10.4); Carbon Dioxide 27 mmol/L (20-30); Chloride 104 mmol/L (98-107); Glucose 118 mg/dL (74-106); Potassium 4.4 mmol/L (3.5-5.1); Sodium 137 mmol/L (136-145)
[2023-06-25 16:07] LABS: Bilirubin, Total 0.3 mg/dL (0.2-1.0)
== END | disposition home or self-care (01) ==
LOC: LAB 15:21
PROVIDERS: ATTEND Student in an Organized Health Care Education/Training Program
DX: I12.9 Hypertensive chronic kidney disease with stage 1 through stage 4 chronic kidney disease, or unspecified chronic kidney disease (principal); N18.30 Chronic kidney disease, stage 3 unspecified; E03.9 Hypothyroidism, unspecified; N39.0 Urinary tract infection, site not specified
CPT/HCPCS: 36415; 80053; 81001; 84439; 84443; 85025; 87086; 87088; 87186

== ENCOUNTER → 2023-06-26 | Outpatient (CLI) | payer OTHER ==
[2023-06-26 08:24] LABS: Urine Bacteria FEW /hpf (None Seen); Urine Blood Negative /uL (Negative); Urine Clarity HAZY (Clear); Urine Hyaline Cast FEW /lpf (0 - 2); Urine Protein, UAD Negative (Negative); Urine Specific Gravity 1.008 (1.001-1.035); Urine Urobilinogen Normal (Negative); Urine WBC 4 /hpf (0 - 5); Urine pH 5.5 (5.0-8.0)
[2023-06-26 08:25] LABS: Urine Color Straw (Yellow)
[2023-06-26 08:26] LABS: Basophils # (auto) 0 10 ^3/uL (0-0.2); Basophils % (auto) 0.8 % (0.0-2.0); Eosinophils # (auto) 0.3 10 ^3/uL (0-0.8); Hematocrit 42.6 % (36.0-46.0); Hemoglobin 14.5 g/dL (12.2-16.2); Lymphocytes # (auto) 1.6 10 ^3/uL (0.4-5.4); Lymphocytes % (auto) 24.5 % (10.0-50.0); Mean Corpuscular Hemoglobin 28.8 pg (28.0-32.0); Mean Corpuscular Volume 84.6 fL (80.0-100.0); Monocytes # (auto) 0.4 10 ^3/uL (0-1.3); Monocytes % (auto) 5.8 % (0.0-12.0); Neutrophils # (auto) 4.2 10 ^3/uL (1.6-8.6); Neutrophils % (auto) 64.9 % (37.0-80.0); Nucleated Red Blood Cells % 0.2 %; Red Blood Cells 5.04 10^6/uL (4.0-5.20); Red Cell Distribution Width 14.5 % (11.8-14.3); White Blood Cell 6.4 10^3/uL (4.4-10.8)
[2023-06-26 08:46] LABS: Alanine Aminotransferase 17 U/L (7-40); Albumin 4.5 g/dL (3.2-4.8); Alkaline Phosphatase 104 U/L (46-116); Anion Gap 5 (5-15); Aspartate Aminotransferase 17 U/L (13-40); BUN/Creatinine Ratio 18.1 (10.0-20.0); Blood Urea Nitrogen 17 mg/dL (9-23); Calcium 9.8 mg/dL (8.5-10.1); Carbon Dioxide 28 mmol/L (20-30); Chloride 107 mmol/L (98-107); Cholesterol 215 mg/dL (< 200); Glucose 111 mg/dL (74-106); HDL Cholesterol 52 mg/dL (40-59); LDL Cholesterol 141 mg/dL (< 100); Potassium 4.8 mmol/L (3.5-5.1); Sodium 140 mmol/L (136-145); Triglycerides 190 mg/dL (< 150)
[2023-06-26 08:47] LABS: Bilirubin, Total 0.5 mg/dL (0.2-1.0); Total Protein 7.4 g/dL (5.7-8.2)
== END | disposition home or self-care (01) ==
LOC: LAB 07:56
DX: I12.9 Hypertensive chronic kidney disease with stage 1 through stage 4 chronic kidney disease, or unspecified chronic kidney disease (principal); N18.30 Chronic kidney disease, stage 3 unspecified; E03.9 Hypothyroidism, unspecified; N39.0 Urinary tract infection, site not specified
CPT/HCPCS: 36415; 80053; 80061; 81001; 84439; 84443; 85025; 87086

== ENCOUNTER → 2024-08-29 | Outpatient (CLI) | payer OTHER ==
[~2024-08-29] MED LIST changes: +LOSA-535 PO; -LOSA100T58 PO
--- NOTE | 2024-08-29 13:30 | DVH ---
Procedure: NM NM BONE 3 PHASE Exam Date: 08/29/2024 09:31 AM Clinical History: pain lt.knee Comparison Study: CT dated 01/08/2024 Nuclear Medicine Three-Phase Bone Scan Technique: Following the intravenous administration of 27 millicuries of technetium 99m MDP dynamic blood flow i mages and static and blood pool images were obtained. Delayed planar images were obtained at 3 hours . Findings: Left knee arthroplasty. advanced degenerative changes of the right knee. Increased activity in the left knee on delayed images. No asymmetric activity noted on flow and blood pool images. Impression: Increased activity in the left knee on delayed images. This may represent reactive change versus loos ening. Recommend correlation with nonemergent plain radiographs and orthopedic consultation.
== END | disposition home or self-care (01) ==
LOC: XYW 09:19
PROVIDERS: ATTEND Internal Medicine
DX: M17.11 Unilateral primary osteoarthritis, right knee (principal); M25.562 Pain in left knee; Z96.652 Presence of left artificial knee joint
CPT/HCPCS: 78315; A9503

== ENCOUNTER → 2024-09-08 | Outpatient (CLI) | payer OTHER ==
[2024-09-08 16:08] LABS: Basophils # (auto) 0.1 10 ^3/uL (0-0.2); Basophils % (auto) 0.9 % (0.0-2.0); Eosinophils # (auto) 0.2 10 ^3/uL (0-0.8); Eosinophils % (auto) 2.4 % (0.0-7.0); Hematocrit 44.5 % (36.0-46.0); Hemoglobin 15.1 g/dL (12.2-16.2); Lymphocytes # (auto) 1.6 10 ^3/uL (0.4-5.4); Lymphocytes % (auto) 19.3 % (10.0-50.0); Mean Corpuscular Hemoglobin 29.4 pg (28.0-32.0); Mean Corpuscular Volume 86.4 fL (80.0-100.0); Monocytes # (auto) 0.4 10 ^3/uL (0-1.3); Monocytes % (auto) 4.3 % (0.0-12.0); Neutrophils % (auto) 73.1 % (37.0-80.0); Nucleated Red Blood Cells % 0.2 %; Platelet Count (auto) 225 10^3/uL (140-450); Red Blood Cells 5.15 10^6/uL (4.0-5.20); Red Cell Distribution Width 13.9 % (11.8-14.3); White Blood Cell 8.2 10^3/uL (4.4-10.8)
[2024-09-08 16:49] LABS: Erythrocyte Sedimentation Rate 14 mm/hr (0-20)
== END | disposition home or self-care (01) ==
LOC: LAB 15:40
PROVIDERS: ATTEND Orthopaedic Surgery Adult Reconstructive Orthopaedic Surgery
DX: M25.562 Pain in left knee (principal)
CPT/HCPCS: 36415; 85025; 85652; 86141

== ENCOUNTER → 2024-12-02 | Outpatient (CLI) | payer OTHER ==
[2024-12-02 12:10] LABS: Basophils # (auto) 0.1 10 ^3/uL (0-0.2); Eosinophils # (auto) 0.2 10 ^3/uL (0-0.8); Eosinophils % (auto) 3.6 % (0.0-7.0); Hematocrit 43.1 % (36.0-46.0); Hemoglobin 15.4 g/dL (12.2-16.2); Lymphocytes # (auto) 1.4 10 ^3/uL (0.4-5.4); Lymphocytes % (auto) 21.1 % (10.0-50.0); Mean Corpuscular Hemoglobin 30.1 pg (28.0-32.0); Mean Corpuscular Hgb Conc. 35.7 g/dL (32.0-36.0); Mean Corpuscular Volume 84.4 fL (80.0-100.0); Monocytes # (auto) 0.3 10 ^3/uL (0-1.3); Monocytes % (auto) 5.1 % (0.0-12.0); Neutrophils # (auto) 4.4 10 ^3/uL (1.6-8.6); Neutrophils % (auto) 69.2 % (37.0-80.0); Nucleated Red Blood Cells % 0.1 %; Platelet Count (auto) 243 10^3/uL (140-450); Red Blood Cells 5.11 10^6/uL (4.0-5.20); Red Cell Distribution Width 13.6 % (11.8-14.3); White Blood Cell 6.4 10^3/uL (4.4-10.8)
[2024-12-02 12:40] LABS: Alanine Aminotransferase 19 U/L (7-40); Albumin 4.7 g/dL (3.2-4.8); Alkaline Phosphatase 104 U/L (46-116); Anion Gap 11 (5-15); Aspartate Aminotransferase 13 U/L (13-40); Blood Urea Nitrogen 17 mg/dL (9-23); Calcium 10.3 mg/dL (8.7-10.4); Carbon Dioxide 26 mmol/L (20-31); Chloride 102 mmol/L (98-107); Potassium 3.9 mmol/L (3.5-5.1); Sodium 139 mmol/L (136-145); Total Protein 7.9 g/dL (5.7-8.2)
[2024-12-02 12:41] LABS: Bilirubin, Total 0.7 mg/dL (0.2-1.0); HDL Cholesterol 48 mg/dL (40-59)
[2024-12-02 12:56] LABS: Cholesterol 228 mg/dL (< 200); Glucose 113 mg/dL (74-106); LDL Cholesterol 154 mg/dL (< 100); Triglycerides 188 mg/dL (< 150)
== END | disposition home or self-care (01) ==
LOC: LAB 11:20
PROVIDERS: ATTEND Student in an Organized Health Care Education/Training Program
DX: I10 Essential (primary) hypertension (principal); E55.9 Vitamin D deficiency, unspecified; N39.0 Urinary tract infection, site not specified; R73.9 Hyperglycemia, unspecified
CPT/HCPCS: 80053; 80061; 83036; 84443

== ENCOUNTER 2025-03-09 09:25 | Outpatient (CLI) | payer OTHER ==
[2025-03-09 10:30] LABS: Urine Protein, UAD Negative (Negative)
[2025-03-09 10:35] LABS: Alanine Aminotransferase 14 U/L (7-40); Alkaline Phosphatase 99 U/L (46-116); Anion Gap 10 (5-15); BUN/Creatinine Ratio 19.4 (10.0-20.0); Blood Urea Nitrogen 20 mg/dL (9-23); Carbon Dioxide 24 mmol/L (20-31); Chloride 105 mmol/L (98-107); Potassium 4.0 mmol/L (3.5-5.1); Sodium 139 mmol/L (136-145); Total Protein 7.7 g/dL (5.7-8.2)
[2025-03-09 10:36] LABS: Albumin 4.7 g/dL (3.2-4.8)
[2025-03-09 10:37] LABS: Bilirubin, Total 0.6 mg/dL (0.2-1.0); Free T3 2.77 pg/mL (2.3-4.2); HDL Cholesterol 54 mg/dL (40-59)
[2025-03-09 10:39] LABS: Calcium 10.5 mg/dL (8.7-10.4); Cholesterol 237 mg/dL (< 200); Glucose 106 mg/dL (74-106); Triglycerides 164 mg/dL (< 150)
[2025-03-09 10:46] LABS: Free T4 (Free Thyroxine) 1.25 ng/dL (0.89-1.76)
== END 2025-03-09 17:00 | disposition home or self-care (01) ==
LOC: LAB 09:25
PROVIDERS: ATTEND Student in an Organized Health Care Education/Training Program
DX: I10 Essential (primary) hypertension (principal); E78.5 Hyperlipidemia, unspecified; E55.9 Vitamin D deficiency, unspecified; R73.9 Hyperglycemia, unspecified
CPT/HCPCS: 36415; 80053; 80061; 81001; 83036; 84439; 84443; 84480; 84481

== ENCOUNTER 2025-05-19 12:39 | Outpatient (CLI) | payer OTHER ==
[2025-05-19] MEDS ORDERED: BUPIVACAINE HCL 0.25% P/F 10 ML VIAL ONE (13:02)
[2025-05-19] MEDS ORDERED: methylPREDNISolone ACETATE 80 MG/ML VL ONE (13:02)
[2025-05-19] MEDS ORDERED: IOHEXOL 300 MG/ML 100ML BOTTLE IJ ONE (13:03)
[2025-05-19] MEDS ORDERED: LIDOCAINE 2%HCL (LOCAL ANESTH.) INJ 10ml MDV ONE (13:03)
--- NOTE | 2025-05-19 14:29 | DVH ---
XY FLUOROGUIDANCE FOR NEEDLE PLAC, XY L HIP 1V XRAY HISTORY: LEFT HIP PAIN COMPARISON: None PROCEDURE: The risks and benefits of the procedure including infection, hemorrhage and technical failure were di scussed with the patient, who agreed to proceed. The patient was positioned supine on the fluoroscopy table. Time out was performed. The left hip was localized using fluoroscopy, and the location on the skin for needle insertion was marked. The region was prepped and draped using routine sterile technique. Approximately 1 cc of lidocaine was injected for local anesthesia. A 22 gauge spinal needle was inserted, and intra-articular location was confir med by injection of less than 1 cc of iodinated contrast. 1 cc of methylprednisolone (80 mg/cc) and 4 cc of Bupivacaine (0.25%) and 5 cc of 2% Lidocaine was then injected without complication. Fluorosco py time was 0.2 minutes. The patient was informed of the temporary precautions to take following the procedure as well as of t he potential signs and symptoms which may indicate the need to contact physician, and expressed unde rstanding of this discussion. IMPRESSION: Successful steroid and anesthetic injection of the left hip.
== END 2025-05-19 17:00 | disposition home or self-care (01) ==
LOC: XYW 12:39
PROVIDERS: ATTEND Physician Assistant Medical
DX: M25.552 Pain in left hip (principal); Z79.82 Long term (current) use of aspirin; Z79.890 Hormone replacement therapy; Z90.710 Acquired absence of both cervix and uterus; Z88.4 Allergy status to anesthetic agent; Z80.3 Family history of malignant neoplasm of breast; Z83.3 Family history of diabetes mellitus
CPT/HCPCS: 20610; 77002; J1010; J2003; J3490; Q9967; 73501

== ENCOUNTER 2025-05-26 08:16 | Inpatient (IN) | payer OTHER ==
[~2025-05-26] VITALS: Ht 152.4 cm; Wt 91.3 kg
--- NOTE | 2025-05-26 08:42 | ECG ---
[facility] Test Date: 2025-05-26 Test Time: 08:34:26 Pat Name: ANDERSON MARTEL Department: ED Room: Gender: F Interactive Media Project Manager: DIONY : 1950 Requested By: LEONARD RAMOS Order Number: [id number] Reading MD: Fernando Buchanan Measurements Intervals [place] Rate: 77 P: 86 TN: 142 QRS: 56 QRSD: 99 T: 2 QT: 377 QTc: 427 Interpretive Statements Sinus rhythm Low voltage, precordial leads Borderline T abnormalities, diffuse leads Electronically Signed On 05-26-2025 15:45:39 PDT by Fernando Buchanan Please click the below link to view image of tracing.
--- NOTE | 2025-05-26 09:32 | ED.PDOC ---
History of Present Illness HPI Comments 74-YEAR-OLD FEMALE PRESENTS TO THE ER WITH A CHIEF COMPLAINT OF ABDOMINAL PAIN. PATIENT REPORTS ON HAVING RIGHT UPPER QUADRANT PAIN FOR TWO WEEKS SHARP BUT IS CURRENTLY PRESSURE-LIKE AND CONSTANT. SURGICAL HISTORY OF TUMMY TUCK. DENIES CHILLS, FEVER, N/V/D, SOB, CP. NO OTHER ASSOCIATED SYMPTOMS, MODIFIERS, RECENT INJURIES OR SICK CONTACTS PRESENT AT THIS TIME. Chief Complaint: Abdominal Pain Time Seen by MD: 09:30 Primary Care Provider: ELSIE DU Reviewed Notes: Nurses Notes, Medications, Allergies Allergies: Coded Allergies: Midazolam (Verified Adverse Reaction, Severe, TREMORS, 09/28/20) Home Meds Reported Medications Cyanocobalamin (B12) 1,000 Mcg Tab, 1000 MCG PO, TAB 09/12/21 Cholecalciferol (VITAMIN D3) 2,000 Unit Tab, 2000 UNIT PO, TAB 09/12/21 Papaya Enzyme (PAPAYA) Unknown Strength Tab, PO DAILY, TAB 09/28/20 Tramadol Hcl (Tramadol Hcl) 50 Mg Tab, 50 MG PO DAILY 08/04/19 Aspirin (Aspir-Low) 81 Mg Tab, 81 MG PO DAILY for 30 Days, MG 08/04/19 Amlodipine Besylate (Amlodipine Besylate) 10 Mg Tab, 1 TAB PO DAILY, #30 TAB 5 Refills 08/04/19 Losartan Potassium (Losartan Potassium) 100 Mg Tab, 100 MG PO DAILY for 30 Days, MG 08/04/19 Levothyroxine Sodium (Synthroid) 125 Mcg Tab, 1 TAB PO DAILY, #30 TAB 5 Refills 08/04/19 Information Source: Patient Mode of Arrival: Ambulatory Severity: Moderate Timing: Weeks Duration: Since onset Prehospital treatment: None Past Medical History PAST MEDICAL HISTORY: High Lipids, HTN, Thyroid, UTI'S Surgical History: Appendectomy, Hysterectomy Surgical History (Other): 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 Hx Family History Family History: Reviewed,noncontributory to illness, Unknown Social History Smoker: Unknown Alcohol: Unknown Drugs: Unknown Lives In: Home Constitutional: denies: chills, diaphoresis, fatigue, fever, malaise, sweats, weakness, others EENTM: denies: blurred vision, double vision, ear bleeding, ear discharge, ear drainage, ear pain, ear ringing, eye pain, eye redness, hearing loss, mouth pain, mouth swelling, nasal discharge, nose bleeding, nose congestion, nose pain, photophobia, tearing, throat pain, throat swelling, voice changes, others Respiratory: denies: cough, hemoptysis, orthopnea, SOB at rest, shortness of breath, SOB with excertion, stridor, wheezing, others Cardiovascular: denies: chest pain, dizzy spells, diaphoresis, Dyspnea on exertion, edema, irregular heart beat, left arm pain, lightheadedness, palpitations, PND, syncope, others Gastrointestinal: reports: abdominal pain; denies: abdomen distended, blood streaked bowels, constipated, diarrhea, dysphagia, difficulty swallowing, hematemesis, melena, nausea, poor appetite, poor fluid intake, rectal bleeding, rectal pain, vomiting, others Genitourinary: denies: abnormal vagina bleeding, burning, dyspareunia, dysuria, flank pain, frequency, hematuria, incontinence, pain, , vagina discharge, urgency, others Neurological: denies: dizziness, fainting, headache, left sided numbness, left sided weakness, numbness, paresthesia, pre-existing deficit, right sided numbness, right sided weakness, seizure, speech problems, tingling, tremors, weakness, others Musculoskeletal: denies: back pain, gout, joint pain, joint swelling, muscle pain, muscle stiffness, neck pain, others Integumetry: denies: bruises, change in color, change in hair/nails, dryness, laceration, lesions, lumps, rash, wounds, others Allergic/Immunocompromised: denies: Difficulty Healing, Frequent Infections, Hives, Itching, others Hematologic/Lymphatic: denies: anemia, blood clots, easy bleeding, easy bruising, swollen glands, others Endocrine: denies: excessive hunger, excessive sweating, excessive thirst, excessive urination, flushing, intolerance to cold, intolerance to heat, unexplained weight gain, unexplained weight loss, others Psychiatric: denies: anxiety, bipolar disorder, depression, hopeless, panic disorder, schizophrenia, sleepless, suicidal, others All Other Systems: Reviewed and Negative Physical Exam General Appearance: No Apparent Distress, Normal HEENT: Normal ENT Inspection, Pharynx Normal, TMs Normal Neck: Full Range of Motion, Non-Tender, Normal, Normal Inspection Respiratory: Chest Non-Tender, Lungs Clear, No Accessory Muscle Use, No Resp iratory Distress, Normal Breath Sounds Cardiovascular: No Edema, No JVD, No Murmur, No Gallop, Normal Peripheral Pulses, Regular Rate/Rhythm Breast Exam: Deferred Gastrointestinal: No Organomegaly, Non Tender, No Pulsatile Mass, Normal Bowel Sounds, Soft Genitalia: Deferred Pelvic: Deferred Rectal: Deferred Extremities: No calf tenderness, Normal capillary refill, Normal inspection, Normal range of motion, Non-tender, No pedal edema Musculoskeletal : Apperance: Normal Neurologic: Alert, nuclear auxiliary operator II-XII nml as Tested, No Motor Deficits, Normal Affect, Normal Mood, No Sensory Deficits Cerebellar Function: Normal Reflexes: Normal Skin: Dry, Normal Color, Warm Lymphatic: No Adenopathy Was a procedure done? Was a procedure done?: No EKG EKG : Pulse Rate (adult): 77 Erwin: Normal Cardiac Rhythm: NSR Block: None Hypertrophy: None ST: Normal Differential Dx Considerations may include: uti, weakness, viral syndrome, diverticulitis, acute appendicitis X-Ray, Labs, Meds, VS Vital Signs Date Time Temp Pulse Resp B/P (MAP) Pulse Ox O2 Delivery O2 Flow Rate FiO2 05/26/25 12:07 82 19 153/51 05/26/25 11:02 97.9 67 16 136/48 (77) 95 97.9 05/26/25 09:32 77 05/26/25 08:34 77 05/26/25 08:17 97.8 94 20 141/60 97 97.8 Lab Test 05/26/25 12:12 05/26/25 09:19 Range/Units Urine Color Colorless Yellow Urine Clarity Clear Clear Urine pH 5.5 5.0-9.0 Urine Specific [place] 1.012 1.001-1.035 Urine Protein Negative Negative Urine Ketones Negative Negative Urine Blood Negative Negative /uL Urine Nitrite 2+ H Negative Urine Bilirubin Negative Negative Urine Urobilinogen Normal Negative mg/dL Urine Leukocyte Esterase 1+ Negative /uL Urine RBC <1 0 - 4 /hpf Urine Microscopic WBC 12 H 0-5 /HPF Urine Squamous Epithelial Cells Few <5 /hpf Urine Bacteria Few H None Seen /hpf Urine Glucose Normal Normal mg/dL White Blood Count 10.0 4.4-10.8 10^3/uL Red Blood Count 4.91 4.0-5.20 10^6/uL Hemoglobin 14.2 12.2-16.2 g/dL Hematocrit 41.9 36.0-46.0 % Mean Corpuscular Volume 85.4 80.0-100.0 fL Mean Corpuscular Hemoglobin 29.0 28.0-32.0 pg Mean Corpuscular Hemoglobin Concent 34.0 32.0-36.0 g/dL Red Cell Distribution Width 14.2 11.8-14.3 % Platelet Count 258 140-450 10^3/uL Mean Platelet Volume 8.3 6.9-10.8 fL Neutrophils (%) (Auto) 75.8 37.0-80.0 % Lymphocytes (%) (Auto) 15.1 10.0-50.0 % Monocytes (%) (Auto) 4.5 0.0-12.0 % Eosinophils (%) (Auto) 4.1 0.0-7.0 % Basophils (%) (Auto) 0.5 0.0-2.0 % Neutrophils # (Auto) 7.6 1.6-8.6 10 ^3/uL Lymphocytes # (Auto) 1.5 0.4-5.4 10 ^3/uL Monocytes # (Auto) 0.5 0-1.3 10 ^3/uL Eosinophils # (Auto) 0.4 0-0.8 10 ^3/uL Basophils # (Auto) 0 0-0.2 10 ^3/uL Nucleated Red Blood Cells 0.1 % Sodium Level 141 136-145 mmol/L Potassium Level 3.4 L 3.5-5.1 mmol/L Chloride Level 104 98-107 mmol/L Carbon Dioxide Level 26 20-31 mmol/L Anion Gap 11 5-15 Blood Urea Nitrogen 15 9-23 mg/dL Creatinine 0.96 0.550-1.02 mg/dL Glomerular Filtration Rate Calc 62 >90 mL/min BUN/Creatinine Ratio 15.6 10.0-20.0 Serum Glucose 105 74-106 mg/dL Calcium Level 9.3 8.7-10.4 mg/dL Troponin I High Sensitivity 3 L </=34 ng/L Current Medications Medications (Trade) Dose Ordered Sig/Dee Route Start Time Stop Time Status Last Admin Morphine Sulfate 4 mg ONCE ONCE IV 05/26/25 11:00 05/26/25 11:11 DC 05/26/25 12:07 Sodium Chloride 1,000 ml @ 1,000 mls/hr Q1H ONCE IV 05/26/25 11:00 05/26/25 11:59 DC 05/26/25 12:06 Ondansetron HCl (Zofran) 4 mg ONCE ONCE IV 05/26/25 11:00 05/26/25 11:11 DC 05/26/25 12:06 Time of 1ST Reevaluation: 10:00 Reevaluation 1ST: Unchanged Patient Education/Counseling: Diagnosis, Treatment, Prognosis Family Education/Counseling: No Family Present SEPSIS Sepsis Screen Date sepsis recognized/suspect: May 26, 2025 Time Sepsis recognized/suspect: 816 Recent Procedure: No On Antibiotic Therapy: No Respiratory Rate >20: No Heart Rate >90: Yes Temp<36 C (96.8 F) or >38.3 C: No SBP <90 or MAP <65 mmHG: No New Acute Mental Status Change: No Is the patient on CPAP, BIPAP,: No Physician Orders Chest Portable (05/26/25 08:54) Ct Ab Pel With Iv Con Only (05/26/25 10:58) Ceftriaxone 1gm/50ml (Rocephin) (05/26/25 13:00) Vital Signs Date Time Temp Pulse Resp B/P (MAP) Pulse Ox O2 Delivery O2 Flow Rate FiO2 05/26/25 12:07 82 19 153/51 05/26/25 11:02 97.9 67 16 136/48 (77) 95 97.9 05/26/25 09:32 77 05/26/25 08:34 77 05/26/25 08:17 97.8 94 20 141/60 97 97.8 Laboratory Tests Test 05/26/25 09:19 White Blood Count 10.0 10^3/uL (4.4-10.8) Medications Medications Dose Ordered Sig/Dee Route Start Time Stop Time Status Last Admin Dose Admin Morphine Sulfate 4 mg ONCE ONCE IV 05/26/25 11:00 05/26/25 11:11 DC 05/26/25 12:07 Ondansetron HCl 4 mg ONCE ONCE IV 05/26/25 11:00 05/26/25 11:11 DC 05/26/25 12:06 Sodium Chloride 1,000 ml @ 1,000 mls/hr Q1H ONCE IV 05/26/25 11:00 05/26/25 11:59 DC 05/26/25 12:06 Departure 1 Departure Time of Disposition: 13:08 (Patient presented with abdominal pain that was concerning for possible appendicits, gastritis, cholecystitis, colitis, gastroenteritis, sbo, or orther possible surgical emergency. Data: 1. I ordered and reviewed the result of at least 3 labs including a CBC, BMP, and Urinalysis. 2. I independently interpreted the following tests: CT Abdomen and Pelvis is concerning for benign abdomen .Risk:This patient has a high risk of morbidity due to further diagnostic testing or treatment and may suffer from an acute abdominal process disorder. Workup reveals intractable abdominal pain and complicated UTI and patient should be admitted for further workup. and possible expert consultation. ) Impression: Primary Impression: Complicated UTI (urinary tract infection) Additional Impression: Intractable abdominal pain Disposition: ADMITTED INPATIENT Admit to: Med Surg Condition: Serious Critical Care Note Critical Care Time?: Yes Critical care comment: Intractable abdominal pain Authorized and Performed by: Leonard Ramos MD Total critical care time: Approximately 39 minutes Due to a high probability of clinically significant, life threatening deterior ation, the patient required my highest level of preparedness to intervene emergently and I personally spent this critical care time directly and personally managing the patient. This critical care time included obtaining a history; examining the patient; pulse oximetry; ordering and review of studies; arranging urgent treatment with development of a management plan; evaluation of patient's response to treatment; frequent reassessment; and, discussions with other providers. This critical care time was performed to assess and manage the high probability of imminent, life-threatening deterioration that could result in multi-organ failure. It was exclusive of separately billable procedures and treating other patients and teaching time. Please see my other sections and the rest of the note for further information on patient assessment and treatment. Stability Stability form required: No I personally scribed for LEONARD RAMOS MD ([email or web address]) on 05/26/25 at 09:32. Electronically submitted by Ronal Kendall ([email or web address]). LEONARD RAMOS MD May 26, 2025 09:32
--- NOTE | 2025-05-26 09:36 | DVH ---
CHEST RADIOGRAPH Indication: abdominal pain Technique: Single frontal view of the chest was obtained COMPARISON: XY CHEST TWO VIEWS ROUTINE on DOS: 08/20/24, CT CHEST WITHOUT CONTRAST on DOS: 06/18/24, XY CHEST TWO VIEWS ROUTINE on DOS: 02/02/23, CHEST PORTABLE on DOS: 09/28/20 FINDINGS: Lines and Tubes: None Lungs: Congestion Pleura: No effusion. No pneumothorax. Cardiomediastinal contours: Unremarkable Bones: Unremarkable IMPRESSION: Increased interstital prominence. This may represent pulmonary vascular congestion and/or viral pneum onia. Clinical correlation advised.
[2025-05-26 09:41] LABS: Hematocrit 41.9 % (36.0-46.0); Hemoglobin 14.2 g/dL (12.2-16.2); Mean Corpuscular Hemoglobin 29.0 pg (28.0-32.0); Mean Corpuscular Volume 85.4 fL (80.0-100.0); Nucleated Red Blood Cells % 0.1 %
[2025-05-26 09:47] LABS: Anion Gap 11 (5-15); Carbon Dioxide 26 mmol/L (20-31); Chloride 104 mmol/L (98-107); Sodium 141 mmol/L (136-145)
[2025-05-26 09:48] LABS: Calcium 9.3 mg/dL (8.7-10.4)
[2025-05-26 09:53] LABS: BUN/Creatinine Ratio 15.6 (10.0-20.0); Blood Urea Nitrogen 15 mg/dL (9-23); Glucose 105 mg/dL (74-106); Potassium 3.4 mmol/L (3.5-5.1)
[2025-05-26] MEDS: IOHEXOL 300 MG/ML 100ML BOTTLE IJ ONE (11:49)
[2025-05-26] MEDS: ONDANSETRON HCL 4 MG/2 ML VIAL IV ONE (12:06)
[2025-05-26] MEDS: SODIUM CHLORIDE 0.9% 1,000 ML IV ONE (12:06)
[2025-05-26] MEDS: MORPHINE SULFATE 4 MG/ML SYR/VIAL IV ONE (12:07)
--- NOTE | 2025-05-26 12:19 | DVH ---
EXAM: CT CT AB PEL WITH IV CON ONLY HISTORY: abdominal pain TECHNIQUE: Volumetric multidetector CT images of the abdomen and pelvis were obtained after the admin istration of intravenous contrast. All CT scans at this facility use dose modulation, iterative recon struction, and/or weight based dosing when appropriate to reduce radiation dose to as low as reasonab ly achievable. COMPARISON: CT CT AB PEL WO CON-NO ORAL OR IV on DOS: 07/15/24 FINDINGS: [LOWER CHEST]: The partially visualized lung bases are clear without a pleural effusion. [LIVER]: Normal hepatic size without suspicious focal lesion. [GALLBLADDER AND BILIARY TREE]: No cholelithiasis. [SPLEEN]: Unremarkable. [PANCREAS]: Unremarkable. [ADRENAL GLANDS]: Unremarkable [KIDNEYS]: Right nephrectomy. Cortical thinning of the left medial kidney. [BLADDER]: Unremarkable for the degree distention. [REPRODUCTIVE ORGANS]: Hysterectomy. [BOWEL/MESENTERY]: Stomach is normal. No CT evidence of bowel obstruction. mild stool burden. [ASCITES]: Absent [LYMPHADENOPATHY]: No pathologically enlarged lymph nodes by CT size criteria [VASCULATURE]: No aneurysmal dilatation. [ABDOMINAL WALL]: Unremarkable. [MUSCULOSKELETAL]: No acute fracture or aggressive focal osseous lesion. Multifocal degenerative caldwell ge of the visualized spine. vertebral body hemangioma of L2. IMPRESSION: 1. No CT evidence of an acute abdominal/pelvic process. 2. Mild stool burden.
[2025-05-26 12:37] LABS: Urine Protein, UAD Negative (Negative)
[2025-05-26 18:47] VITALS: PULSE 65; RESP 16; O2SAT 94
[2025-05-26] MEDS ORDERED: HYDROcodone-ACET 5/325MG TAB PO PRN (19:00)
[2025-05-26] MEDS ORDERED: ONDANSETRON HCL 4 MG/2 ML VIAL IV PRN (19:00)
[2025-05-26] MEDS: PANTOPRAZOLE 40 MG/10 ML VIAL INJ IV ONE (19:30)
[2025-05-26 19:53] VITALS: PULSE 68; RESP 18; O2SAT 94
[2025-05-26] MEDS: DOCUSATE SOD 100 MG CAP PO SCH (22:21)
[2025-05-26 23:37] VITALS: RESP 20
[2025-05-27] VITALS (8 sets, daily range): BP systolic 106–133; BP diastolic 45–69; PULSE 61–73; RESP 16–19; TEMP 97.1–98.6; O2SAT 94–96
[2025-05-27] MEDS ORDERED: INFLUENZA TRIVALENT 2024-2025 0.5 ML INJ IM ONE (00:15)
[2025-05-27] MEDS: MORPHINE SULFATE INJ 2 MG/ml SYRG IV PRN (00:58)
--- NOTE | 2025-05-27 04:45 | DVHHP2 ---
History of Present Illness Reason for Visit: Abdominal pain History of Present Illness 74-year-old female presents for evaluation of abdominal pain. Patient endorses a two week history of intermittent right upper quadrant abdominal pain sharp in nature. She states that over the past couple of days pain has been more constant currently reports a feeling or pressure. No nausea or vomiting. No diarrhea. Reports occasional constipation No other acute complaints. Past Medical History Dyslipidemia, thyroid, hypertension Past Surgical History Hysterectomy, appendectomy, tummy tuck Family History Noncontributory Smoke: No ALCOHOL: none Drugs: None Lives: with Family Review of Systems Review of Systems Review of systems are currently negative otherwise addressed in HPI. Allergies: Coded Allergies: Midazolam (Verified Adverse Reaction, Severe, TREMORS, 09/28/20) Medications Current Medications Medications Dose Ordered Sig/Dee Route Start Time Stop Time Status Last Admin Dose Admin Amlodipine Besylate 10 mg DAILY PO 05/27/25 10:00 Aspirin 81 mg DAILY PO 05/27/25 10:00 Levothyroxine Sodium 125 mcg QAM@0600 PO 05/27/25 06:00 Losartan Potassium 100 mg DAILY PO 05/27/25 10:00 Docusate Sodium 100 mg BID PO 05/26/25 22:00 05/26/25 22:21 100 MG Acetaminophen/ Hydrocodone Bitart 1 tab Q4HP PRN PO 05/26/25 19:00 Ondansetron HCl 4 mg Q4HP PRN IV 05/26/25 19:00 Acetaminophen 650 mg Q6HP PRN PO 05/26/25 19:00 Morphine Sulfate 2 mg Q6HPRN PRN IV 05/26/25 19:00 05/27/25 00:58 2 MG Pantoprazole Sodium 40 mg DAILY IV 05/27/25 10:00 Ceftriaxone Sodium 50 ml @ 100 mls/hr DAILY@09 IV 05/27/25 09:00 Exam Vital Signs Vital Signs Date Time Temp Pulse Resp B/P (MAP) Pulse Ox O2 Delivery O2 Flow Rate FiO2 05/27/25 01:28 62 16 112/56 05/27/25 00:40 97.9 94 97.9 05/26/25 23:37 Room Air* 0 21 Exam Gen: 74-year-old female in mild distress Skin: Warm, dry, normal color and texture, no rash. HEENT: Normocephalic atraumatic, mucous membranes moist and pink. Neck: Cervical and supraclavicular nodes normal without enlargement, trachea is midline, thyroid gland is normal without masses. Pulmonary: Clear to auscultation and percussion bilaterally. Cardiac: Regular rate and rhythm. No murmur Abdomen: Soft right upper quadrant tenderness nondistended, bowel sounds present all 4 quadrants, no guarding, no rigidity, no organomegaly. Extremities: No cyanosis, clubbing, no edema Neuro: Cranial nerves II through XII grossly intact, normal affect and speech, no focal motor deficits. Labs/Xrays ORDERING PHYSICIAN: LEONARD RAMOS MD PROCEDURE(s): ABPLIV - CT AB PEL WITH IV CON ONLY REASON: abdominal pain ORDER NUMBER(s): [id number], ACCESSION NUMBER(s): [id number] EXAM: CT CT AB PEL WITH IV CON ONLY HISTORY: abdominal pain TECHNIQUE: Volumetric multidetector CT images of the abdomen and pelvis were obtained after the administration of intravenous contrast. All CT scans at this facility use dose modulation, iterative reconstruction, and/or weight based dosing when appropriate to reduce radiation dose to as low as reasonably achievable. COMPARISON: CT CT AB PEL WO CON-NO ORAL OR IV on DOS: 07/15/24 FINDINGS: [LOWER CHEST]: The partially visualized lung bases are clear without a pleural effusion. [LIVER]: Normal hepatic size without suspicious focal lesion. [GALLBLADDER AND BILIARY TREE]: No cholelithiasis. [SPLEEN]: Unremarkable. [PANCREAS]: Unremarkable. [ADRENAL GLANDS]: Unremarkable [KIDNEYS]: Right nephrectomy. Cortical thinning of the left medial kidney. [BLADDER]: Unremarkable for the degree distention. [REPRODUCTIVE ORGANS]: Hysterectomy. [BOWEL/MESENTERY]: Stomach is normal. No CT evidence of bowel obstruction. mild stool burden. [ASCITES]: Absent [LYMPHADENOPATHY]: No pathologically enlarged lymph nodes by CT size criteria [VASCULATURE]: No aneurysmal dilatation. [ABDOMINAL WALL]: Unremarkable. [MUSCULOSKELETAL]: No acute fracture or aggressive focal osseous lesion. Multifocal degenerative change of the visualized spine. vertebral body hemangioma of L2. IMPRESSION: 1. No CT evidence of an acute abdominal/pelvic process. 2. Mild stool burden. ATED BY: TENNILLE REYES MD DICTATED DATE/TIME: 05/26/25 1216 Labs Test 05/26/25 12:12 05/26/25 09:19 Range/Units Urine Color Colorless Yellow Urine Clarity Clear Clear Urine pH 5.5 5.0-9.0 Urine Specific [place] 1.012 1.001-1.035 Urine Protein Negative Negative Urine Ketones Negative Negative Urine Blood Negative Negative /uL Urine Nitrite 2+ H Negative Urine Bilirubin Negative Negative Urine Urobilinogen Normal Negative mg/dL Urine Leukocyte Esterase 1+ Negative /uL Urine RBC <1 0 - 4 /hpf Urine Microscopic WBC 12 H 0-5 /HPF Urine Squamous Epithelial Cells Few <5 /hpf Urine Bacteria Few H None Seen /hpf Urine Glucose Normal Normal mg/dL White Blood Count 10.0 4.4-10.8 10^3/uL Red Blood Count 4.91 4.0-5.20 10^6/uL Hemoglobin 14.2 12.2-16.2 g/dL Hematocrit 41.9 36.0-46.0 % Mean Corpuscular Volume 85.4 80.0-100.0 fL Mean Corpuscular Hemoglobin 29.0 28.0-32.0 pg Mean Corpuscular Hemoglobin Concent 34.0 32.0-36.0 g/dL Red Cell Distribution Width 14.2 11.8-14.3 % Platelet Count 258 140-450 10^3/uL Mean Platelet Volume 8.3 6.9-10.8 fL Neutrophils (%) (Auto) 75.8 37.0-80.0 % Lymphocytes (%) (Auto) 15.1 10.0-50.0 % Monocytes (%) (Auto) 4.5 0.0-12.0 % Eosinophils (%) (Auto) 4.1 0.0-7.0 % Basophils (%) (Auto) 0.5 0.0-2.0 % Neutrophils # (Auto) 7.6 1.6-8.6 10 ^3/uL Lymphocytes # (Auto) 1.5 0.4-5.4 10 ^3/uL Monocytes # (Auto) 0.5 0-1.3 10 ^3/uL Eosinophils # (Auto) 0.4 0-0.8 10 ^3/uL Basophils # (Auto) 0 0-0.2 10 ^3/uL Nucleated Red Blood Cells 0.1 % Sodium Level 141 136-145 mmol/L Potassium Level 3.4 L 3.5-5.1 mmol/L Chloride Level 104 98-107 mmol/L Carbon Dioxide Level 26 20-31 mmol/L Anion Gap 11 5-15 Blood Urea Nitrogen 15 9-23 mg/dL Creatinine 0.96 0.550-1.02 mg/dL Glomerular Filtration Rate Calc 62 >90 mL/min BUN/Creatinine Ratio 15.6 10.0-20.0 Serum Glucose 105 74-106 mg/dL Calcium Level 9.3 8.7-10.4 mg/dL Troponin I High Sensitivity 3 L </=34 ng/L B-Type Natriuretic Peptide 63.60 0-100 pg/mL SEPSIS Sepsis Screen Date sepsis recognized/suspect: May 26, 2025 Time Sepsis recognized/suspect: 1952 Recent Procedure: No On Antibiotic Therapy: Yes Respiratory Rate >20: No Heart Rate >90: No Temp<36 C (96.8 F) or >38.3 C: No SBP <90 or MAP <65 mmHG: No New Acute Mental Status Change: No Is the patient on CPAP, BIPAP,: No Physician Orders Hepatitis B Surface Antigen (05/27/25 05:00) Hepatitis C Antibody (05/27/25 05:00) * Pipe Installer Consult (05/27/25 ) Vital Signs Date Time Temp Pulse Resp B/P (MAP) Pulse Ox O2 Delivery O2 Flow Rate FiO2 05/27/25 01:28 62 16 112/56 05/27/25 00:58 61 20 115/55 05/27/25 00:40 97.9 61 18 115/55 (75) 94 97.9 05/26/25 23:37 20 Room Air* 0 21 Medications Medications Dose Ordered Sig/Dee Route Start Time Stop Time Status Last Admin Dose Admin Docusate Sodium 100 mg BID PO 05/26/25 22:00 05/26/25 22:21 100 MG Morphine Sulfate 2 mg Q6HPRN PRN IV 05/26/25 19:00 05/27/25 00:58 2 MG Pantoprazole Sodium 40 mg ONCE ONCE IV 05/26/25 19:00 05/26/25 19:14 DC 05/26/25 19:30 40 MG Assessment/Plan Assessment/Plan Assessment Acute abdominal pain Hypertension UTI Hypokalemia Plan Admit the patient to Med surge to the hospitalist GI consult Clear liquid diet Rocephin Resume home medications Continue treatment per orders. Plan discussed with: Patient My Orders Orders - PHILL PARKER Procedure Category Date Status Time * Gi Dvh Coding Analyst CONS 05/26/25 Transmitted 18:53 Amlodipine Tablet PHA 05/27/25 In Process (Norvasc Tablet) 10:00 Aspirin Tablet PHA 05/27/25 In Process 10:00 Levothyroxine Tablet PHA 05/27/25 In Process (Synthroid Tablet) 06:00 Losartan Tablet PHA 05/27/25 In Process (Cozaar Tablet) 10:00 Docusate Sodium PHA 05/26/25 In Process Capsule (Colace 22:00 Basic Metabolic Panel LAB 05/27/25 Logged 04:00 Admit ADMIT 05/26/25 Transmitted 18:53 Hydrocodone-Acet PHA 05/26/25 In Process 5/325mg Tab ([place] 19:00 Ondansetron Hcl PHA 05/26/25 In Process (Zofran) 19:00 Complete Blood Count LAB 05/27/25 Logged 04:00 Condition: Stable TORIN 05/26/25 In Process 18:53 Acetaminophen Tablet PHA 05/26/25 In Process (Tylenol Tablet) 19:00 Clear Liq Diet DIET 05/27/25 Transmitted Breakfast Bedrest With Bathroom TORIN 05/26/25 In Process Privileg 18:53 Morphine Sulfate PHA 05/26/25 In Process Injection 19:00 Pantoprazole PHA 05/27/25 In Process (Protonix) 10:00 Ceftriaxone 1gm/50ml PHA 05/27/25 In Process (Rocephin) 09:00 Hepatitis B Surface LAB 05/27/25 Logged Antigen 05:00 Hepatitis C Antibody LAB 05/27/25 Logged 05:00 * Pipe Installer CONS 05/27/25 Transmitted Consult Date of Service: May 26, 2025 Billing Provider: PHILL PARKER Common Visit Codes: [id number] INP/OBS CARE (MOD) PHILL PARKER May 27, 2025 04:45
[2025-05-27] MEDS: LEVOTHYROXINE SODIUM 50 MCG TAB PO SCH (05:10)
[2025-05-27 07:03] LABS: Hematocrit 38.5 % (36.0-46.0); Hemoglobin 13.0 g/dL (12.2-16.2); Mean Corpuscular Hemoglobin 28.9 pg (28.0-32.0); Mean Corpuscular Volume 85.7 fL (80.0-100.0); Nucleated Red Blood Cells % 0.0 %
[2025-05-27 07:11] LABS: Potassium 3.6 mmol/L (3.5-5.1); Sodium 141 mmol/L (136-145)
[2025-05-27 07:12] LABS: Anion Gap 8 (5-15); Calcium 8.9 mg/dL (8.7-10.4); Carbon Dioxide 26 mmol/L (20-31)
[2025-05-27 07:17] LABS: BUN/Creatinine Ratio 11.7 (10.0-20.0); Blood Urea Nitrogen 12 mg/dL (9-23); Chloride 107 mmol/L (98-107); Glucose 97 mg/dL (74-106)
[2025-05-27] MEDS: PANTOPRAZOLE 40 MG/10 ML VIAL INJ IV SCH (09:01)
[2025-05-27] MEDS: LOSARTAN POTASSIUM 50 MG TAB PO SCH (09:02)
[2025-05-27 11:30] LABS: Hepatitis B Surface Antigen Negative (Negative); Hepatitis C Antibody Negative (Negative)
--- NOTE | 2025-05-27 13:41 | DVHPN2 ---
Reviewed: Care Plan, H&P, Labs, Medications, Previous Orders, Radiology Changes from previous H/P or p: No Changes Objective Vitals Vital Signs Date Time Temp Pulse Resp B/P (MAP) Pulse Ox O2 Delivery O2 Flow Rate FiO2 05/27/25 09:03 128/68 05/27/25 09:00 97.9 63 19 95 97.9 05/27/25 08:00 Room Air* 0 21 Intake/Output Intake and Output 05/27/25 07:00 Intake Total 360 ml Balance 360 ml Intake Oral 360 ml # Voids 1 Medications Current Medications Medications Dose Ordered Sig/Dee Route Start Time Stop Time Status Last Admin Dose Admin Amlodipine Besylate 10 mg DAILY PO 05/27/25 10:00 05/27/25 09:03 10 MG Aspirin 81 mg DAILY PO 05/27/25 10:00 05/27/25 09:03 81 MG Levothyroxine Sodium 125 mcg QAM@0600 PO 05/27/25 06:00 05/27/25 05:10 125 MCG Losartan Potassium 100 mg DAILY PO 05/27/25 10:00 05/27/25 09:02 100 MG Docusate Sodium 100 mg BID PO 05/26/25 22:00 05/26/25 22:21 100 MG Acetaminophen/ Hydrocodone Bitart 1 tab Q4HP PRN PO 05/26/25 19:00 Ondansetron HCl 4 mg Q4HP PRN IV 05/26/25 19:00 Acetaminophen 650 mg Q6HP PRN PO 05/26/25 19:00 Morphine Sulfate 2 mg Q6HPRN PRN IV 05/26/25 19:00 05/27/25 00:58 2 MG Pantoprazole Sodium 40 mg DAILY IV 05/27/25 10:00 05/27/25 09:01 40 MG Ceftriaxone Sodium 50 ml @ 100 mls/hr DAILY@09 IV 05/27/25 09:00 05/27/25 09:02 100 MLS/HR Laboratory Results Laboratory Tests 05/27/25 06:34 Chemistry Test 05/27/25 06:34 Albumin Pending Calcium Level 8.9 mg/dL (8.7-10.4) Total Protein Pending LFT Test 05/27/25 06:34 Alanine Aminotransferase (ALT) Pending Alkaline Phosphatase Pending Aspartate Amino Transferase (AST) Pending Direct Bilirubin Pending Total Bilirubin Pending Urinalysis Test 05/26/25 12:12 Urine Color Colorless (Yellow) Urine Clarity Clear (Clear) Urine pH 5.5 (5.0-9.0) Urine Specific [place] 1.012 (1.001-1.035) Urine Protein Negative (Negative) Urine Ketones Negative (Negative) Urine Blood Negative /uL (Negative) Urine Nitrite 2+ (Negative) H Urine Bilirubin Negative (Negative) Urine Urobilinogen Normal mg/dL (Negative) Urine Leukocyte Esterase 1+ /uL (Negative) Urine RBC <1 /hpf (0 - 4) Urine Microscopic WBC 12 /HPF (0-5) H Urine Squamous Epithelial Cells Few /hpf (<5) Urine Bacteria Few /hpf (None Seen) H Urine Glucose Normal mg/dL (Normal) Labs and/or images reviewed: Labs reviewed by me, Image(s) reviewed by me Assessment/Plan Assessment/Plan Acute abdominal pain labs normal CT abdomen pelvis without contrast negative, GI consult for Dr. Brandon Wing Hypertension UTI Hypokalemia Plan discussed with: Patient My Orders Orders - VIANCA JACKSON MD Procedure Category Date Status Time * Gi Dvh Assistant Service Manager CONS 05/27/25 Verified 13:35 Date of Service: May 27, 2025 Billing Provider: VIANCA JACKSON MD Common Visit Codes: [id number] INP/OBS CARE(HIGH) VIANCA JACKSON MD May 27, 2025 13:41
[2025-05-27 14:25] LABS: Alanine Aminotransferase 15.0 U/L (7-40); Albumin 3.7 g/dL (3.2-4.8); Alkaline Phosphatase 90.0 U/L (46-116); Bilirubin, Direct 0.1 mg/dL (<0.3); Bilirubin, Total 0.5 mg/dL (0.2-1.0); Total Protein 6.5 g/dL (5.7-8.2)
--- NOTE | 2025-05-27 14:51 | DVHINCON2 ---
GI Consult Consult Note GI consult note Date of Consultation: 05/27/2025 Chief Complaint: Abdominal pain Referring Physician: Cuauhtemoc HAJI H&P: 74-year-old female admitted with complains of right upper quadrant abdominal pain, for the past two weeks, on and off and sharp in nature. No nausea or vomiting. Denies history of GERD. Denies melena or red blood in stool. Patient's pain is slightly improving at this time. No EGD in past. Status post colonoscopy 2019 Dr. Pike, with 3 cm polyp removed which was benign in nature Past Medical History: Dyslipidemia, thyroid, hypertension Past Surgical History: Hysterectomy, appendectomy, tummy tuck Social History: NO smoking, drinking ETOH and use of illegal drugs. Family History: Noncontributory Review of Systems: Constitutional: no fever, chill, weight loss HEENT: no eye pain, no hearing loss, no oral lesion, no scleral icterus Heart: no chest pain, no chest pressure Lung: no cough, no dyspnea with exertion Abdomen: see HPI Physical exam: General: NAD, AAOX3 Chest: lung valdivia clear to auscultation Heart: RRR, no murmur Abdomen: non-distended, mild RUQ tenderness to palpation, +BS Labs: Labs Test 05/27/25 06:34 05/26/25 12:12 05/26/25 09:19 Range/Units White Blood Count 8.5 4.4-10.8 10^3/uL Red Blood Count 4.49 4.0-5.20 10^6/uL Hemoglobin 13.0 12.2-16.2 g/dL Hematocrit 38.5 36.0-46.0 % Mean Corpuscular Volume 85.7 80.0-100.0 fL Mean Corpuscular Hemoglobin 28.9 28.0-32.0 pg Mean Corpuscular Hemoglobin Concent 33.7 32.0-36.0 g/dL Red Cell Distribution Width 14.3 11.8-14.3 % Platelet Count 224 140-450 10^3/uL Mean Platelet Volume 8.2 6.9-10.8 fL Neutrophils (%) (Auto) 70.4 37.0-80.0 % Lymphocytes (%) (Auto) 19.5 10.0-50.0 % Monocytes (%) (Auto) 5.0 0.0-12.0 % Eosinophils (%) (Auto) 4.6 0.0-7.0 % Basophils (%) (Auto) 0.5 0.0-2.0 % Neutrophils # (Auto) 6.0 1.6-8.6 10 ^3/uL Lymphocytes # (Auto) 1.6 0.4-5.4 10 ^3/uL Monocytes # (Auto) 0.4 0-1.3 10 ^3/uL Eosinophils # (Auto) 0.4 0-0.8 10 ^3/uL Basophils # (Auto) 0 0-0.2 10 ^3/uL Nucleated Red Blood Cells 0.0 % Sodium Level 141 136-145 mmol/L Potassium Level 3.6 3.5-5.1 mmol/L Chloride Level 107 98-107 mmol/L Carbon Dioxide Level 26 20-31 mmol/L Anion Gap 8 5-15 Blood Urea Nitrogen 12 9-23 mg/dL Creatinine 1.03 H 0.550-1.02 mg/dL Glomerular Filtration Rate Calc 57 >90 mL/min BUN/Creatinine Ratio 11.7 10.0-20.0 Serum Glucose 97 74-106 mg/dL Calcium Level 8.9 8.7-10.4 mg/dL Total Bilirubin 0.5 0.2-1.0 mg/dL Direct Bilirubin 0.1 <0.3 mg/dL Aspartate Amino Transferase (AST) 14 13-40 U/L Alanine Aminotransferase (ALT) 15 7-40 U/L Alkaline Phosphatase 90 46-116 U/L Total Protein 6.5 5.7-8.2 g/dL Albumin 3.7 3.2-4.8 g/dL Hepatitis B Surface Antigen Negative Negative Hepatitis C Antibody Negative Negative Urine Color Colorless Yellow Urine Clarity Clear Clear Urine pH 5.5 5.0-9.0 Urine Specific [place] 1.012 1.001-1.035 Urine Protein Negative Negative Urine Ketones Negative Negative Urine Blood Negative Negative /uL Urine Nitrite 2+ H Negative Urine Bilirubin Negative Negative Urine Urobilinogen Normal Negative mg/dL Urine Leukocyte Esterase 1+ Negative /uL Urine RBC <1 0 - 4 /hpf Urine Microscopic WBC 12 H 0-5 /HPF Urine Squamous Epithelial Cells Few <5 /hpf Urine Bacteria Few H None Seen /hpf Urine Glucose Normal Normal mg/dL Troponin I High Sensitivity 3 L </=34 ng/L B-Type Natriuretic Peptide 63.60 0-100 pg/mL Imaging: CT abdomen pelvis IMPRESSION: 1. No CT evidence of an acute abdominal/pelvic process. 2. Mild stool burden. Assessment: Abdominal pain UTI Plan: Discussed with Dr. Wing Right upper quadrant ultrasound Symptomatic treatment Full liquid diet If symptoms improve possible outpatient elective boyd endoscopy to be planned We will continue to follow patient Plan discussed with patient and RN Thank you for this consult Date of Service: May 27, 2025 Billing Provider: LISA JACKSON Common Visit Codes: CONSULT ONLY Consultation Codes: [id number] CONSULT <60MIN LISA JACKSON May 27, 2025 14:51
--- NOTE | 2025-05-27 19:36 | DVH ---
ULTRASOUND ABDOMEN, LIMITED RIGHT UPPER QUADRANT: REASON FOR EXAM: RUQ pain TECHNIQUE: Real-time sector scans in the transverse and longitudinal planes were obtained through th e right upper quadrant of the abdomen. FINDINGS: The liver is of normal size and contour. There is hepatopetal flow in the portal vein. The re is no intrahepatic nor extrahepatic biliary ductal dilatation. The common bile duct measures 4 mm . There is a shadowing stone in the gallbladder measuring approximately 17 mm. There is no gallbladde r wall thickening nor pericholecystic fluid. There is a sonographic Reddy's sign. The pancreas is nearly completely obscured by bowel gas. The right kidney is surgically absent. The left kidney measures 11.4 cm. No hydronephrosis or nephro lithiasis is identified. There is no evidence of right renal mass or cyst. The visualized portions of the abdominal aorta demonstrate no evidence of aneurysmal dilatation. The visualized inferior vena cava is unremarkable. There is no free fluid identified in the right upper quadrant. IMPRESSION: Cholelithiasis. Sonographic Reddy's sign. Correlate clinically and with history for possible acute c holecystitis.
[2025-05-28] VITALS (7 sets, daily range): BP systolic 114–144; BP diastolic 50–77; PULSE 62–83; RESP 16–18; TEMP 97.4–98.1; O2SAT 92–97
--- NOTE | 2025-05-28 11:02 | DVHPN2 ---
Reviewed: Care Plan, H&P, Labs, Medications, Previous Orders, Radiology Changes from previous H/P or p: No Changes Objective Vitals Vital Signs Date Time Temp Pulse Resp B/P (MAP) Pulse Ox O2 Delivery O2 Flow Rate FiO2 05/28/25 09:33 120/76 05/28/25 09:00 97.4 73 17 97 97.4 05/27/25 20:00 Room Air* 0 21 Intake/Output Intake and Output 05/28/25 07:00 Intake Total 970 ml Balance 970 ml Intake Oral 920 ml IV Total 50 ml # Voids 8 # Bowel Movements 4 Medications Current Medications Medications Dose Ordered Sig/Dee Route Start Time Stop Time Status Last Admin Dose Admin Amlodipine Besylate 10 mg DAILY PO 05/27/25 10:00 05/28/25 09:33 10 MG Aspirin 81 mg DAILY PO 05/27/25 10:00 05/28/25 09:31 81 MG Levothyroxine Sodium 125 mcg QAM@0600 PO 05/27/25 06:00 05/28/25 05:31 125 MCG Losartan Potassium 100 mg DAILY PO 05/27/25 10:00 05/28/25 09:32 100 MG Docusate Sodium 100 mg BID PO 05/26/25 22:00 05/26/25 22:21 100 MG Acetaminophen/ Hydrocodone Bitart 1 tab Q4HP PRN PO 05/26/25 19:00 Ondansetron HCl 4 mg Q4HP PRN IV 05/26/25 19:00 Acetaminophen 650 mg Q6HP PRN PO 05/26/25 19:00 Morphine Sulfate 2 mg Q6HPRN PRN IV 05/26/25 19:00 05/27/25 00:58 2 MG Pantoprazole Sodium 40 mg DAILY IV 05/27/25 10:00 05/28/25 09:32 40 MG Ceftriaxone Sodium 50 ml @ 100 mls/hr DAILY@09 IV 05/27/25 09:00 05/28/25 09:32 100 MLS/HR Laboratory Results Laboratory Tests 05/27/25 06:34 Urinalysis Test 05/26/25 12:12 Urine Color Colorless (Yellow) Urine Clarity Clear (Clear) Urine pH 5.5 (5.0-9.0) Urine Specific [place] 1.012 (1.001-1.035) Urine Protein Negative (Negative) Urine Ketones Negative (Negative) Urine Blood Negative /uL (Negative) Urine Nitrite 2+ (Negative) H Urine Bilirubin Negative (Negative) Urine Urobilinogen Normal mg/dL (Negative) Urine Leukocyte Esterase 1+ /uL (Negative) Urine RBC <1 /hpf (0 - 4) Urine Microscopic WBC 12 /HPF (0-5) H Urine Squamous Epithelial Cells Few /hpf (<5) Urine Bacteria Few /hpf (None Seen) H Urine Glucose Normal mg/dL (Normal) Labs and/or images reviewed: Labs reviewed by me, Image(s) reviewed by me Assessment/Plan Assessment/Plan Acute abdominal pain labs normal CT abdomen pelvis without contrast negative, GI consult for Dr. Brandon Wing Hypertension UTI Hypokalemia Gallstones possible acute cholecystitis by right upper quadrant ultrasound: HIDA scan pending, surgical consult ordered Plan discussed with: Patient My Orders Orders - VIANCA JACKSON MD Procedure Category Date Status Time * Gi Dvh Dispatcher Tow Truck CONS 05/27/25 Transmitted 13:35 Date of Service: May 28, 2025 Billing Provider: VIANCA JACKSON MD Common Visit Codes: [id number] INP/OBS CARE(HIGH) VIANCA JACKSON MD May 28, 2025 11:02
[2025-05-28] MEDS: D5W/SOD CHL 0.45% 1,000 ML IV SCH (13:04)
--- NOTE | 2025-05-28 13:51 | DVHINCON2 ---
Consultation - Surgical Date Seen: May 28, 2025 Referring Physician Reason for Consultation Possible cholecystitis History of Present Illness History of Present Illness Mrs. Vuong is a 74-year-old female who presented to the ED and was admitted to the hospital yesterday due to recurrent episodes of right upper quadrant abdominal pain, sharp, that has been going on for the past 2 weeks. Patient states that the pain was very severe initially and then subsided only to keep on presenting intermittently. The pain started increasing severity 3 days ago and she decided to come to the ED. patient denies nausea, vomiting, fevers, chills, acholic stools, changes in urinary or stooling habits. Patient does not associated the pain with consuming any food items in particular. Past Medical/Surgical History Past Medical/Surgical History PMH hyperlipidemia, hypothyroid, hypertension PSH hysterectomy, appendectomy, tummy tuck Family and Social History Family and Social History Noncontributory ETOH/T Ob/drugs denies Allergies and medications Allergies: Coded Allergies: Midazolam (Verified Adverse Reaction, Severe, TREMORS, 09/28/20) Home Meds Reported Medications Cyanocobalamin (B12) 1,000 Mcg Tab, 1000 MCG PO, TAB 09/12/21 Cholecalciferol (VITAMIN D3) 2,000 Unit Tab, 2000 UNIT PO, TAB 09/12/21 Papaya Enzyme (PAPAYA) Unknown Strength Tab, PO DAILY, TAB 09/28/20 Tramadol Hcl (Tramadol Hcl) 50 Mg Tab, 50 MG PO DAILY 08/04/19 Aspirin (Aspir-Low) 81 Mg Tab, 81 MG PO DAILY for 30 Days, MG 08/04/19 Amlodipine Besylate (Amlodipine Besylate) 10 Mg Tab, 1 TAB PO DAILY, #30 TAB 5 Refills 08/04/19 Losartan Potassium (Losartan Potassium) 100 Mg Tab, 100 MG PO DAILY for 30 Days, MG 08/04/19 Levothyroxine Sodium (Synthroid) 125 Mcg Tab, 1 TAB PO DAILY, #30 TAB 5 Refills 08/04/19 Review of systems Review of Systems: Deferred Examination Vital signs Vital Signs Date Time Temp Pulse Resp B/P (MAP) Pulse Ox O2 Delivery O2 Flow Rate FiO2 05/28/25 09:33 120/76 05/28/25 09:00 97.4 73 17 97 97.4 05/28/25 08:00 Room Air* 0 21 Medications Current Medications Medications (Trade) Dose Ordered Sig/Dee Route PRN Reason Start Time Stop Time Status Last Admin Dextrose/Sodium Chloride 1,000 ml @ 125 mls/hr Q8H IV 05/28/25 11:15 05/28/25 13:04 Laboratory Labs Test 05/27/25 06:34 05/26/25 12:12 05/26/25 09:19 Range/Units White Blood Count 8.5 4.4-10.8 10^3/uL Red Blood Count 4.49 4.0-5.20 10^6/uL Hemoglobin 13.0 12.2-16.2 g/dL Hematocrit 38.5 36.0-46.0 % Mean Corpuscular Volume 85.7 80.0-100.0 fL Mean Corpuscular Hemoglobin 28.9 28.0-32.0 pg Mean Corpuscular Hemoglobin Concent 33.7 32.0-36.0 g/dL Red Cell Distribution Width 14.3 11.8-14.3 % Platelet Count 224 140-450 10^3/uL Mean Platelet Volume 8.2 6.9-10.8 fL Neutrophils (%) (Auto) 70.4 37.0-80.0 % Lymphocytes (%) (Auto) 19.5 10.0-50.0 % Monocytes (%) (Auto) 5.0 0.0-12.0 % Eosinophils (%) (Auto) 4.6 0.0-7.0 % Basophils (%) (Auto) 0.5 0.0-2.0 % Neutrophils # (Auto) 6.0 1.6-8.6 10 ^3/uL Lymphocytes # (Auto) 1.6 0.4-5.4 10 ^3/uL Monocytes # (Auto) 0.4 0-1.3 10 ^3/uL Eosinophils # (Auto) 0.4 0-0.8 10 ^3/uL Basophils # (Auto) 0 0-0.2 10 ^3/uL Nucleated Red Blood Cells 0.0 % Sodium Level 141 136-145 mmol/L Potassium Level 3.6 3.5-5.1 mmol/L Chloride Level 107 98-107 mmol/L Carbon Dioxide Level 26 20-31 mmol/L Anion Gap 8 5-15 Blood Urea Nitrogen 12 9-23 mg/dL Creatinine 1.03 H 0.550-1.02 mg/dL Glomerular Filtration Rate Calc 57 >90 mL/min BUN/Creatinine Ratio 11.7 10.0-20.0 Serum Glucose 97 74-106 mg/dL Calcium Level 8.9 8.7-10.4 mg/dL Total Bilirubin 0.5 0.2-1.0 mg/dL Direct Bilirubin 0.1 <0.3 mg/dL Aspartate Amino Transferase (AST) 14 13-40 U/L Alanine Aminotransferase (ALT) 15 7-40 U/L Alkaline Phosphatase 90 46-116 U/L Total Protein 6.5 5.7-8.2 g/dL Albumin 3.7 3.2-4.8 g/dL Hepatitis B Surface Antigen Negative Negative Hepatitis C Antibody Negative Negative Urine Color Colorless Yellow Urine Clarity Clear Clear Urine pH 5.5 5.0-9.0 Urine Specific [place] 1.012 1.001-1.035 Urine Protein Negative Negative Urine Ketones Negative Negative Urine Blood Negative Negative /uL Urine Nitrite 2+ H Negative Urine Bilirubin Negative Negative Urine Urobilinogen Normal Negative mg/dL Urine Leukocyte Esterase 1+ Negative /uL Urine RBC <1 0 - 4 /hpf Urine Microscopic WBC 12 H 0-5 /HPF Urine Squamous Epithelial Cells Few <5 /hpf Urine Bacteria Few H None Seen /hpf Urine Glucose Normal Normal mg/dL Troponin I High Sensitivity 3 L </=34 ng/L B-Type Natriuretic Peptide 63.60 0-100 pg/mL Examination: GENERAL:Normal, HEENT:Normal (No icterus), ABDOMEN:Abnormal (Nondistended, lower abdominal scar well healed, umbilical hernia, soft, depressible, right upper quadrant tenderness, positive Reddy's sign) Problem List/Assessment/Plan Problems: (1) Acute cholecystitis due to biliary calculus Assessment and Plan Mrs. Vuong is a 74-year-old female who presented to the hospital yesterday with acute cholecystitis. Ultrasound shows multiple stones within the gallbladder wall lumen. On physical exam patient has a exquisite right upper quadrant tenderness with positive Reddy's sign. For this reason I offered laparoscopic cholecystectomy: procedure risks, benefits, complications, and alternatives were discussed with the patient. Patient would like to proceed with surgical plan. 1. Scheduled for laparoscopic cholecystectomy, tomorrow a.m. 2. Okay for diet, with a NPO at midnight 3. Pain and nausea control 4. Continue with ceftriaxone 5. No need for HIDA scan (canceled) Plan discussed with Plan discussed with: Patient Visit Coding Surgery Date of Service if different f: May 28, 2025 Billing Provider: ELIA GREENBERG MD Surgery Visit Codes: [id number] - INP CONSULT <110 MIN ELIA GREENBERG MD May 28, 2025 13:51
--- NOTE | 2025-05-28 15:01 | DVHPN2 ---
Subjective No changes Reviewed: Care Plan, H&P, Labs, Medications, Previous Orders, Radiology Changes from previous H/P or p: No Changes Objective Vitals Vital Signs Date Time Temp Pulse Resp B/P (MAP) Pulse Ox O2 Delivery O2 Flow Rate FiO2 05/28/25 13:00 97.7 77 18 144/77 (99) 96 97.7 05/28/25 08:00 Room Air* 0 21 Intake/Output Intake and Output 05/28/25 07:00 Intake Total 970 ml Balance 970 ml Intake Oral 920 ml IV Total 50 ml # Voids 8 # Bowel Movements 4 Exam General: NAD, AAOX3 Chest: lung valdivia clear to auscultation Heart: RRR, no murmur Abdomen: non-distended, mild RUQ tenderness to palpation, +BS Medications Current Medications Medications Dose Ordered Sig/Dee Route Start Time Stop Time Status Last Admin Dose Admin Amlodipine Besylate 10 mg DAILY PO 05/27/25 10:00 05/28/25 09:33 10 MG Aspirin 81 mg DAILY PO 05/27/25 10:00 05/28/25 09:31 81 MG Levothyroxine Sodium 125 mcg QAM@0600 PO 05/27/25 06:00 05/28/25 05:31 125 MCG Losartan Potassium 100 mg DAILY PO 05/27/25 10:00 05/28/25 09:32 100 MG Docusate Sodium 100 mg BID PO 05/26/25 22:00 05/26/25 22:21 100 MG Acetaminophen/ Hydrocodone Bitart 1 tab Q4HP PRN PO 05/26/25 19:00 Ondansetron HCl 4 mg Q4HP PRN IV 05/26/25 19:00 Acetaminophen 650 mg Q6HP PRN PO 05/26/25 19:00 Morphine Sulfate 2 mg Q6HPRN PRN IV 05/26/25 19:00 05/27/25 00:58 2 MG Pantoprazole Sodium 40 mg DAILY IV 05/27/25 10:00 05/28/25 09:32 40 MG Ceftriaxone Sodium 50 ml @ 100 mls/hr DAILY@09 IV 05/27/25 09:00 05/28/25 09:32 100 MLS/HR Dextrose/Sodium Chloride 1,000 ml @ 125 mls/hr Q8H IV 05/28/25 11:15 05/28/25 13:04 125 MLS/HR Laboratory Results Laboratory Tests 05/27/25 06:34 Urinalysis Test 05/26/25 12:12 Urine Color Colorless (Yellow) Urine Clarity Clear (Clear) Urine pH 5.5 (5.0-9.0) Urine Specific [place] 1.012 (1.001-1.035) Urine Protein Negative (Negative) Urine Ketones Negative (Negative) Urine Blood Negative /uL (Negative) Urine Nitrite 2+ (Negative) H Urine Bilirubin Negative (Negative) Urine Urobilinogen Normal mg/dL (Negative) Urine Leukocyte Esterase 1+ /uL (Negative) Urine RBC <1 /hpf (0 - 4) Urine Microscopic WBC 12 /HPF (0-5) H Urine Squamous Epithelial Cells Few /hpf (<5) Urine Bacteria Few /hpf (None Seen) H Urine Glucose Normal mg/dL (Normal) Labs and/or images reviewed: Labs reviewed by me, Image(s) reviewed by me Assessment/Plan Assessment/Plan Abdominal pain UTI Cholelithiasis Plan: Discussed with Dr. Wing Surgical consult appreciated Patient is scheduled for cholecystectomy tomorrow Outpatient GI follow-up recommended Plan discussed with: Patient Date of Service: May 28, 2025 Billing Provider: LISA JACKSON Common Visit Codes: [id number] INP/OBS CARE(HIGH) LISA JACKSON May 28, 2025 15:00
[2025-05-28] MEDS: ACETAMINOPHEN 325 MG TAB PO PRN (18:24)
[2025-05-29] VITALS (8 sets, daily range): BP systolic 108–136; BP diastolic 57–69; PULSE 56–88; RESP 15–19; TEMP 97.1–98.7; O2SAT 91–96
[2025-05-29 07:01] LABS: Hematocrit 38.7 % (36.0-46.0); Hemoglobin 13.1 g/dL (12.2-16.2); Mean Corpuscular Hemoglobin 28.8 pg (28.0-32.0); Mean Corpuscular Volume 84.9 fL (80.0-100.0); Nucleated Red Blood Cells % 0.0 %
[2025-05-29 07:10] LABS: INR 0.97 (0.9-1.15); Partial Thromboplastin Time 28.3 SEC (24.5-34.5); Prothrombin Time 10.3 sec (9.3-11.8)
[2025-05-29 07:15] LABS: Alanine Aminotransferase 26 U/L (7-40); Albumin 3.6 g/dL (3.2-4.8); Alkaline Phosphatase 90 U/L (46-116); Anion Gap 11 (5-15); BUN/Creatinine Ratio 15.8 (10.0-20.0); Bilirubin, Total 0.4 mg/dL (0.2-1.0); Blood Urea Nitrogen 15 mg/dL (9-23); Calcium 9.0 mg/dL (8.7-10.4); Carbon Dioxide 26 mmol/L (20-31); Chloride 106 mmol/L (98-107); Glucose 102 mg/dL (74-106); Potassium 3.6 mmol/L (3.5-5.1); Sodium 143 mmol/L (136-145); Total Protein 6.5 g/dL (5.7-8.2)
[2025-05-29] MEDS ORDERED: METOCLOPRAMIDE HCL 5MG/ml INJ 2ml VIAL IV PRN (09:30)
[2025-05-29] MEDS ORDERED: ONDANSETRON HCL 4 MG/2 ML VIAL IV PRN (09:30)
[2025-05-29] MEDS ORDERED: ACETAMINOPHEN IV 1000 MG/100ML (10MG/ML) IV ONE (09:30)
[2025-05-29] MEDS ORDERED: HYDROmorphone HCL 2 MG/ML VL/or syr IV PRN (09:30)
[2025-05-29] MEDS ORDERED: PROPOFOL 10 MG/ML 20 ML IV ONE (09:43)
[2025-05-29] MEDS ORDERED: MIDAZOLAM HCL 2MG/2ML 2ml VIAL (1mg/ml) ONE (09:43)
[2025-05-29] MEDS ORDERED: fentaNYL CITRATE 100 MCG/2 ML VL ONE (09:43)
[2025-05-29] MEDS ORDERED: ROCURONIUM 10MG/ML 10ML VIAL IV ONE (09:43)
[2025-05-29] MEDS ORDERED: METOCLOPRAMIDE HCL 5MG/ml INJ 2ml VIAL ONE (09:44)
[2025-05-29] MEDS ORDERED: ONDANSETRON HCL 4 MG/2 ML VIAL ONE (09:44)
[2025-05-29] MEDS: ceFAZolin 2 GM/D5W50ml 50 ML IV ONE (10:00)
[2025-05-29] MEDS: BUPIVACAINE 0.25% INJ 50ML VIAL ONE (10:07)
[2025-05-29] MEDS ORDERED: HYDROmorphone HCL 2 MG/ML VL/or syr ONE (10:21)
[2025-05-29] MEDS ORDERED: SUGAMMADEX 200mg/2ml Vial (100MG/ML) IV ONE (10:23)
--- NOTE | 2025-05-29 10:34 | DVHPN2 ---
Reviewed: Care Plan, H&P, Labs, Medications, Previous Orders, Radiology Changes from previous H/P or p: No Changes Objective Vitals Vital Signs Date Time Temp Pulse Resp B/P (MAP) Pulse Ox O2 Delivery O2 Flow Rate FiO2 05/29/25 09:00 97.1 74 19 131/68 (89) 96 97.1 05/28/25 20:00 Room Air* 0 21 Intake/Output Intake and Output 05/29/25 07:00 Intake Total 2050 ml Balance 2050 ml Intake Oral 1500 ml IV Total 550 ml # Voids 6 # Bowel Movements 1 Medications Current Medications Medications Dose Ordered Sig/Dee Route Start Time Stop Time Status Last Admin Dose Admin Amlodipine Besylate 10 mg DAILY PO 05/27/25 10:00 05/28/25 09:33 10 MG Aspirin 81 mg DAILY PO 05/27/25 10:00 05/28/25 09:31 81 MG Levothyroxine Sodium 125 mcg QAM@0600 PO 05/27/25 06:00 05/29/25 05:21 125 MCG Losartan Potassium 100 mg DAILY PO 05/27/25 10:00 05/28/25 09:32 100 MG Docusate Sodium 100 mg BID PO 05/26/25 22:00 05/28/25 21:08 100 MG Acetaminophen/ Hydrocodone Bitart 1 tab Q4HP PRN PO 05/26/25 19:00 Ondansetron HCl 4 mg Q4HP PRN IV 05/26/25 19:00 Acetaminophen 650 mg Q6HP PRN PO 05/26/25 19:00 05/28/25 18:24 650 MG Morphine Sulfate 2 mg Q6HPRN PRN IV 05/26/25 19:00 05/27/25 00:58 2 MG Pantoprazole Sodium 40 mg DAILY IV 05/27/25 10:00 05/28/25 09:32 40 MG Ceftriaxone Sodium 50 ml @ 100 mls/hr DAILY@09 IV 05/27/25 09:00 05/28/25 09:32 100 MLS/HR Dextrose/Sodium Chloride 1,000 ml @ 125 mls/hr Q8H IV 05/28/25 11:15 05/28/25 13:04 125 MLS/HR Laboratory Results Laboratory Tests 05/29/25 05:47 Chemistry Test 05/29/25 05:47 Albumin 3.6 g/dL (3.2-4.8) Calcium Level 9.0 mg/dL (8.7-10.4) Total Protein 6.5 g/dL (5.7-8.2) Coagulation Test 05/29/25 05:47 Prothrombin Time 10.3 sec (9.3-11.8) Prothrombin Time INR 0.97 (0.9-1.15) Activated Partial Thromboplast Time 28.3 SEC (24.5-34.5) LFT Test 05/29/25 05:47 Alanine Aminotransferase (ALT) 26 U/L (7-40) Alkaline Phosphatase 90 U/L (46-116) Aspartate Amino Transferase (AST) 21 U/L (13-40) Total Bilirubin 0.4 mg/dL (0.2-1.0) Urinalysis Test 05/26/25 12:12 Urine Color Colorless (Yellow) Urine Clarity Clear (Clear) Urine pH 5.5 (5.0-9.0) Urine Specific [place] 1.012 (1.001-1.035) Urine Protein Negative (Negative) Urine Ketones Negative (Negative) Urine Blood Negative /uL (Negative) Urine Nitrite 2+ (Negative) H Urine Bilirubin Negative (Negative) Urine Urobilinogen Normal mg/dL (Negative) Urine Leukocyte Esterase 1+ /uL (Negative) Urine RBC <1 /hpf (0 - 4) Urine Microscopic WBC 12 /HPF (0-5) H Urine Squamous Epithelial Cells Few /hpf (<5) Urine Bacteria Few /hpf (None Seen) H Urine Glucose Normal mg/dL (Normal) Labs and/or images reviewed: Labs reviewed by me, Image(s) reviewed by me Assessment/Plan Assessment/Plan Acute abdominal pain labs normal CT abdomen pelvis without contrast negative, GI consult for Dr. Brandon Wing Hypertension UTI Hypokalemia Gallstones possible acute cholecystitis by right upper quadrant ultrasound: Patient getting lap lorne by Dr. Bowden today Plan discussed with: Patient My Orders Orders - VIANCA JACKSON MD Procedure Category Date Status Time * Surgical Consult CONS 05/28/25 Transmitted D5w/Sod Chl 0.45% PHA 05/28/25 In Process (D5w 1/2ns) 11:15 Date of Service: May 29, 2025 Billing Provider: VIANCA JACKSON MD Common Visit Codes: [id number] INP/OBS CARE(HIGH) VIANCA JACKSON MD May 29, 2025 10:34
[2025-05-29] MEDS ORDERED: HYDROcodone-ACET 10/325MG TAB PO PRN (12:00)
[2025-05-29] MEDS ORDERED: HYDROcodone-ACET 5/325MG TAB PO PRN (12:00)
--- NOTE | 2025-05-29 12:19 | DVHOP2 ---
Operative Report - 2 Report Details Date: 05/29/25 Preop Diagnosis: Acute cholecystitis Postop Diagnosis: Same Surgeon: Reilly Caldwell MD Anesthesiologist: Tino hendricks CRNA Anesthesia: General Drains: None Consent: The patient was informed of the risks and benefits of the procedure. These include but are not limited to complications of anesthesia, postoperative infection, incomplete relief of symptoms, recurrence of symptoms, damage to blood vessels, nerves and tendons, deep venous thrombosis, pulmonary embolism and possible need for repeat surgery in the future. Complications: None Estimated Blood Loss: 5 mL Findings: Distended gallbladder, very thin walled, omental adhesions to lateral aspect of the gallbladder and liver. Omental adhesions to the anterior abdominal wall, very dense around the umbilicus. Indications for Surgery: Acute cholecystitis Name of Procedure Performed Laparoscopic cholecystectomy Procedure Details Procedure Details: Upon arrival to the operating room patient was transferred to the operating table and placed in the supine position with arms extended. General anesthesia was induced. Time-out was observed. Patient was prepped and draped in the standard sterile surgical fashion. I then made a infraumbilical curvilinear incision, utilizing a previous surgical scar, and carried dissection down to fascia. Umbilical stalk was then grasped with Navneet clamp and walk to its base, I then noted that the fascia had a small hole to the right of the umbilicus. I then extended this fascial opening and introduced the Jennifer cannula through it. I then insufflated the peritoneal cavity to 15 mmHg with toleration. Camera was inserted and I only saw fatty tissue all the way around. At this point I noted that I was dealing with adhesions to the abdominal wall. I then made a 5 mm incision at vigil's point, and utilized up to view to gain access to the peritoneal cavity. I then noted that there were omental adhesions to the anterior abdominal wall completely surrounding the umbilicus. During the wreck visualization I was able to localize the position of the Jennifer trocar, and was able to make a small window at the thinnest point of the adhesions, placed in the trocar through it and getting access to the peritoneal cavity. Villasenor cannula was held in place with a retention stitch to the skin. I then placed 3 additional working ports, 5 mm, under direct visualization at the epigastric area, right midclavicular under the rib area and right flank. I then directed my attention to the liver and gallbladder. Gallbladder was very enlarged, and distended. I then grasped the gallbladder with atraumatic grasper and elevated cephalad and towards the right shoulder. I then noticed some omental adhesions on the lateral aspect of the gallbladder and to the liver. These adhesions were taken down with cautery. I then was able to fully expose the infundibulum, which I grasped with a 2nd grasper and retracted laterally. I then proceeded to incise the peritoneum at the base of the gallbladder and carried it towards the liver, on both sides of the gallbladder. Now Calot triangle was exposed. The gallbladder at the infundibulum sites started ripping, and it had some bile spillage. I was then able to fully skeletonize Calot triangle, and was able to identify the cystic duct but not a main artery. There were only 2 small arteries entering the gallbladder, 1 close to the cystic duct and another several cm up in the gallbladder. Nothing else was seen entering the gallbladder and thus critical view was obtained. I proceeded to clip the cystic duct with 5 mm clips, 3 times proximal and 1 time distal. The 2 small arteries were clipped twice proximal and 1 distal. All 3 strictures were transected. I then dissected the gallbladder off of the liver bed with electrocautery. Once the gallbladder was completely off of the liver bed it was placed in the Endo-Catch bag and removed from the peritoneal cavity through the infraumbilical site. I then proceeded to surveyed the gallbladder fossa no bleeding was noted. I then proceeded to copiously serially irrigated the fossa, over the liver, with normal saline until effluent was clear. I then proceeded to surgery again the umbilical entry site adhesions were just omentum, no bowel. I then surveyed again the gallbladder fossa, no bleeding/oozing/bowel leaking noted. I then proceeded to remove all 4 5 mm ports under direct vision, no bleeding from the abdominal wall. The peritoneal cavity was allowed to fully desufflate. I then utilized a 0 Vicryl to close the umbilical fascial defect. I did it with a [id number] technique. I then closed all skin site with 4-0 Monocryl and Dermabond. All counts complete and correct. Patient tolerated the procedure well and was transferred to PACU in stable condition Specimen: Gallbladder and contents Condition Stable Disposition Still a Patient REILLY GREENBERG MD May 29, 2025 12:18
--- NOTE | 2025-05-29 13:04 | DVHPN2 ---
Progress Note - Dictate Date Seen: May 29, 2025 Medical Necessity Reason Pt with a Central, PICC or Fol: No (Dede) Subjective Patient is S/P laparoscopic cholecystectomy today Mild postop pain no nausea vomiting vital signs Vital Sign Date Time Temp Pulse Resp B/P (MAP) Pulse Ox O2 Delivery O2 Flow Rate FiO2 05/29/25 11:50 79 13 128/58 (81) 93 05/29/25 11:45 Nasal Cannula 2.0 05/29/25 11:45 95 05/29/25 11:31 97.7 97.7 Total Intake and Output 05/28/25 05/28/25 05/29/25 15:00 23:00 07:00 Intake Total 50 ml 1300 ml 700 ml Balance 50 ml 1300 ml 700 ml medications Current Medications Medications Dose Ordered Sig/Dee Route Start Time Stop Time Status Last Admin Dose Admin Amlodipine Besylate 10 mg DAILY PO 05/27/25 10:00 05/28/25 09:33 10 MG Aspirin 81 mg DAILY PO 05/27/25 10:00 05/28/25 09:31 81 MG Levothyroxine Sodium 125 mcg QAM@0600 PO 05/27/25 06:00 05/29/25 05:21 125 MCG Losartan Potassium 100 mg DAILY PO 05/27/25 10:00 05/28/25 09:32 100 MG Docusate Sodium 100 mg BID PO 05/26/25 22:00 05/28/25 21:08 100 MG Acetaminophen/ Hydrocodone Bitart 1 tab Q4HP PRN PO 05/26/25 19:00 Ondansetron HCl 4 mg Q4HP PRN IV 05/26/25 19:00 Acetaminophen 650 mg Q6HP PRN PO 05/26/25 19:00 05/28/25 18:24 650 MG Morphine Sulfate 2 mg Q6HPRN PRN IV 05/26/25 19:00 Hold 05/27/25 00:58 2 MG Pantoprazole Sodium 40 mg DAILY IV 05/27/25 10:00 05/28/25 09:32 40 MG Ceftriaxone Sodium 50 ml @ 100 mls/hr DAILY@09 IV 05/27/25 09:00 05/28/25 09:32 100 MLS/HR Dextrose/Sodium Chloride 1,000 ml @ 125 mls/hr Q8H IV 05/28/25 11:15 05/28/25 13:04 125 MLS/HR Acetaminophen/ Hydrocodone Bitart 1 tab Q6HPRN PRN PO 05/29/25 12:00 Acetaminophen/ Hydrocodone Bitart 1 tab Q6HP PRN PO 05/29/25 12:00 objective General: NAD, AAOX3 Chest: lung valdivia clear to auscultation Heart: RRR, no murmur Abdomen: non-distended, mild RUQ tenderness to palpation, +BS laboratory and microbiology Laboratory Tests 05/29/25 05:47 Test 05/29/25 05:47 Range/Units Serum Glucose 102 74-106 mg/dL Problems(with codes): (1) Intractable abdominal pain (2) Acute cholecystitis due to biliary calculus (3) Complicated UTI (urinary tract infection) Prognosis Plan Continue IV antibiotics Pain control, IV emetics IV PPI Monitor labs Clear liquid diet and advance as tolerated Plan discussed with: Other (Alix Gonzales) KEILY SANCHEZ MD May 29, 2025 13:03
[2025-05-30 01:00] VITALS: BP 118/58; PULSE 81; RESP 17; TEMP 98.5; O2SAT 91
[2025-05-30] MEDS: MELATONIN 5 MG TAB PO ONE (01:33)
[2025-05-30 05:00] VITALS: BP 116/66; PULSE 76; RESP 19; TEMP 98.4; O2SAT 94
[2025-05-30 06:11] LABS: Hematocrit 37.9 % (36.0-46.0); Hemoglobin 12.9 g/dL (12.2-16.2); Mean Corpuscular Hemoglobin 28.6 pg (28.0-32.0); Mean Corpuscular Volume 84.2 fL (80.0-100.0); Nucleated Red Blood Cells % 0.0 %
[2025-05-30 06:30] LABS: Alkaline Phosphatase 97 U/L (46-116); Anion Gap 11 (5-15); BUN/Creatinine Ratio 11.5 (10.0-20.0); Blood Urea Nitrogen 11 mg/dL (9-23); Calcium 9.1 mg/dL (8.7-10.4); Carbon Dioxide 23 mmol/L (20-31); Chloride 103 mmol/L (98-107); Potassium 4.1 mmol/L (3.5-5.1); Sodium 137 mmol/L (136-145); Total Protein 6.9 g/dL (5.7-8.2)
[2025-05-30 06:31] LABS: Albumin 4.0 g/dL (3.2-4.8); Bilirubin, Total 0.5 mg/dL (0.2-1.0)
[2025-05-30 06:36] LABS: Alanine Aminotransferase 88 U/L (7-40); Glucose 123 mg/dL (74-106)
[2025-05-30 08:00] VITALS: PULSE 80; RESP 16; O2SAT 93
[2025-05-30 09:00] VITALS: BP 108/53; PULSE 75; RESP 16; TEMP 98.6; O2SAT 92
--- NOTE | 2025-05-30 10:20 | DVHPN2 ---
Progress Note - Surgical Date Seen: May 30, 2025 Post op day Post op day: 1 Subjective Patient reports: Other (Patient states that last night she was having some right upper quadrant stabbing pain similar to the one she presented to the ED with, not having that pain this morning, no nausea, no vomiting, tolerating clear liquid diet) Review of Systems: Deferred Objective Vital signs Vital Sign Date Time Temp Pulse Resp B/P (MAP) Pulse Ox O2 Delivery O2 Flow Rate FiO2 05/30/25 09:24 108/53 05/30/25 09:00 98.6 75 16 92 98.6 05/29/25 20:00 Room Air* 0 21 Total Intake and Output 05/29/25 05/29/25 05/30/25 15:00 23:00 07:00 Intake Total 150 ml 870 ml 540 ml Balance 150 ml 870 ml 540 ml Medications Current Medications Medications Dose Ordered Sig/Dee Route Start Time Stop Time Status Last Admin Dose Admin Amlodipine Besylate 10 mg DAILY PO 05/27/25 10:00 05/30/25 09:24 10 MG Aspirin 81 mg DAILY PO 05/27/25 10:00 05/30/25 09:24 81 MG Levothyroxine Sodium 125 mcg QAM@0600 PO 05/27/25 06:00 05/30/25 05:11 125 MCG Losartan Potassium 100 mg DAILY PO 05/27/25 10:00 05/30/25 09:24 100 MG Docusate Sodium 100 mg BID PO 05/26/25 22:00 05/30/25 09:24 100 MG Ondansetron HCl 4 mg Q4HP PRN IV 05/26/25 19:00 Acetaminophen 650 mg Q6HP PRN PO 05/26/25 19:00 05/30/25 09:23 650 MG Pantoprazole Sodium 40 mg DAILY IV 05/27/25 10:00 05/30/25 09:23 40 MG Ceftriaxone Sodium 50 ml @ 100 mls/hr DAILY@09 IV 05/27/25 09:00 05/30/25 09:27 100 MLS/HR Dextrose/Sodium Chloride 1,000 ml @ 125 mls/hr Q8H IV 05/28/25 11:15 05/28/25 13:04 125 MLS/HR Tramadol HCl 25 mg Q4HP PRN PO 05/30/25 09:45 Tramadol HCl 50 mg Q4HP PRN PO 05/30/25 09:45 Laboratory Laboratory Tests 05/30/25 05:32 Test 05/30/25 05:32 Range/Units Serum Glucose 123 H 74-106 mg/dL Examination: GENERAL:Normal, HEENT:Normal (No icterus), ABDOMEN:Normal (Nondistended, soft, depressible, incision sites with skin glue in place, umbilical incision with minor ecchymosis inferiorly, appropriate tenderness) Labs and/or images reviewed: Labs reviewed by me (WBC count at 11.2, hemoglobin 12.9, no LFT elevation) Problem List/Assessment/Plan Problems: (1) Acute cholecystitis due to biliary calculus Assessment and Plan Mrs. Vuong is a 74-year-old female who presented with acute cholecystitis, she is currently postop day 1 from laparoscopic cholecystectomy. Patient is doing okay this morning, complaining of some right upper quadrant abdominal pain (which she has expected after surgery), she tolerated clear liquid diet. Patient can be advanced to a low-fat diet. She is cleared for discharge from a surgical standpoint. 1. Advanced to low-fat diet, she can be discharged on a low-fat diet 2. Cleared for discharge from a surgical standpoint 3. No lifting over 10 lb for 6-8 weeks after surgery 4. Okay to shower today 5. No bathing or swimming 6. Baseline pain control with Tylenol and/or ibuprofen, follow wire coiler's directions 7. For severe pain please prescribe tramadol 50 mg p.o. every 6 hours p.r.n. severe pain 8. MiraLax 1 packet daily for 10 days 9. Follow-up with Dr. Bowden at surgery Clinic in 2 weeks My Orders My Orders Orders - ELIA GREENBERG MD Procedure Category Date Status Time Tramadol Hcl (Ultram) PHA 05/30/25 In Process 09:45 Tramadol Hcl (Ultram) PHA 05/30/25 In Process 09:45 Mechanical Soft Diet DIET 05/30/25 Transmitted Lunch Plan discussed with Plan discussed with: Patient Visit Coding Surgery Date of Service if different f: May 30, 2025 Billing Provider: ELAI GREENBERG MD Surgery Visit Codes: [id number] INP/OBS CARE(HIGH) ELIA GREENBERG MD May 30, 2025 10:20
[2025-05-30] MEDS ORDERED: HYDR-4902 PO (12:30)
[2025-05-30] MEDS ORDERED: LEVO500T91 PO (12:30)
[2025-05-30] MEDS ORDERED: METR-344 PO (12:30)
--- NOTE | 2025-05-30 12:32 | DVHPN2 ---
Reviewed: Care Plan, H&P, Labs, Medications, Previous Orders, Radiology Changes from previous H/P or p: No Changes Objective Vitals Vital Signs Date Time Temp Pulse Resp B/P (MAP) Pulse Ox O2 Delivery O2 Flow Rate FiO2 05/30/25 09:24 108/53 05/30/25 09:00 98.6 75 16 92 98.6 05/29/25 20:00 Room Air* 0 21 Intake/Output Intake and Output 05/30/25 07:00 Intake Total 1560 ml Balance 1560 ml Intake Oral 1410 ml IV Total 150 ml # Voids 4 Medications Current Medications Medications Dose Ordered Sig/Dee Route Start Time Stop Time Status Last Admin Dose Admin Amlodipine Besylate 10 mg DAILY PO 05/27/25 10:00 05/30/25 09:24 10 MG Aspirin 81 mg DAILY PO 05/27/25 10:00 05/30/25 09:24 81 MG Levothyroxine Sodium 125 mcg QAM@0600 PO 05/27/25 06:00 05/30/25 05:11 125 MCG Losartan Potassium 100 mg DAILY PO 05/27/25 10:00 05/30/25 09:24 100 MG Docusate Sodium 100 mg BID PO 05/26/25 22:00 05/30/25 09:24 100 MG Ondansetron HCl 4 mg Q4HP PRN IV 05/26/25 19:00 Acetaminophen 650 mg Q6HP PRN PO 05/26/25 19:00 05/30/25 09:23 650 MG Pantoprazole Sodium 40 mg DAILY IV 05/27/25 10:00 05/30/25 09:23 40 MG Ceftriaxone Sodium 50 ml @ 100 mls/hr DAILY@09 IV 05/27/25 09:00 05/30/25 09:27 100 MLS/HR Dextrose/Sodium Chloride 1,000 ml @ 125 mls/hr Q8H IV 05/28/25 11:15 05/28/25 13:04 125 MLS/HR Tramadol HCl 25 mg Q4HP PRN PO 05/30/25 09:45 Tramadol HCl 50 mg Q4HP PRN PO 05/30/25 09:45 Laboratory Results Laboratory Tests 05/30/25 05:32 Chemistry Test 05/30/25 05:32 Albumin 4.0 g/dL (3.2-4.8) Calcium Level 9.1 mg/dL (8.7-10.4) Total Protein 6.9 g/dL (5.7-8.2) LFT Test 05/30/25 05:32 Alanine Aminotransferase (ALT) 88 U/L (7-40) H Alkaline Phosphatase 97 U/L (46-116) Aspartate Amino Transferase (AST) 66 U/L (13-40) H Total Bilirubin 0.5 mg/dL (0.2-1.0) Urinalysis Test 05/26/25 12:12 Urine Color Colorless (Yellow) Urine Clarity Clear (Clear) Urine pH 5.5 (5.0-9.0) Urine Specific [place] 1.012 (1.001-1.035) Urine Protein Negative (Negative) Urine Ketones Negative (Negative) Urine Blood Negative /uL (Negative) Urine Nitrite 2+ (Negative) H Urine Bilirubin Negative (Negative) Urine Urobilinogen Normal mg/dL (Negative) Urine Leukocyte Esterase 1+ /uL (Negative) Urine RBC <1 /hpf (0 - 4) Urine Microscopic WBC 12 /HPF (0-5) H Urine Squamous Epithelial Cells Few /hpf (<5) Urine Bacteria Few /hpf (None Seen) H Urine Glucose Normal mg/dL (Normal) Labs and/or images reviewed: Labs reviewed by me, Image(s) reviewed by me Assessment/Plan Assessment/Plan Acute cholecystitis status post lap lorne by Dr. Bowden on 05/29/2025 UTI Hypokalemia Gallstones Acute abdominal pain Plan discussed with: Patient Date of Service: May 30, 2025 Billing Provider: VIANCA JACKSON MD Common Visit Codes: [id number] INP/OBS CARE(HIGH) VIANCA JACKSON MD May 30, 2025 12:32
--- NOTE | 2025-05-30 12:35 | DVHDS2 ---
Discharge Summary Date of Admission May 26, 2025 at 18:53 Date of Discharge: May 30, 2025 Admitting Diagnosis Right upper quadrant abdominal pain Wounds: Laparoscopic cholecystectomy Labs/Diagnostic Data: Laboratory Results Test 05/30/25 05:32 05/29/25 05:47 05/27/25 06:34 05/26/25 12:12 White Blood Count 11.2 10^3/uL (4.4-10.8) Red Blood Count 4.50 10^6/uL (4.0-5.20) Hemoglobin 12.9 g/dL (12.2-16.2) Hematocrit 37.9 % (36.0-46.0) Mean Corpuscular Volume 84.2 fL (80.0-100.0) Mean Corpuscular Hemoglobin 28.6 pg (28.0-32.0) Mean Corpuscular Hemoglobin Concent 33.9 g/dL (32.0-36.0) Red Cell Distribution Width 14.4 % (11.8-14.3) Platelet Count 261 10^3/uL (140-450) Mean Platelet Volume 8.2 fL (6.9-10.8) Neutrophils (%) (Auto) 91.0 % (37.0-80.0) Lymphocytes (%) (Auto) 4.8 % (10.0-50.0) Monocytes (%) (Auto) 4.0 % (0.0-12.0) Eosinophils (%) (Auto) 0.0 % (0.0-7.0) Basophils (%) (Auto) 0.2 % (0.0-2.0) Neutrophils # (Auto) 10.2 10 ^3/uL (1.6-8.6) Lymphocytes # (Auto) 0.5 10 ^3/uL (0.4-5.4) Monocytes # (Auto) 0.4 10 ^3/uL (0-1.3) Eosinophils # (Auto) 0 10 ^3/uL (0-0.8) Basophils # (Auto) 0 10 ^3/uL (0-0.2) Nucleated Red Blood Cells 0.0 % Sodium Level 137 mmol/L (136-145) Potassium Level 4.1 mmol/L (3.5-5.1) Chloride Level 103 mmol/L (98-107) Carbon Dioxide Level 23 mmol/L (20-31) Anion Gap 11 (5-15) Blood Urea Nitrogen 11 mg/dL (9-23) Creatinine 0.96 mg/dL (0.550-1.02) Glomerular Filtration Rate Calc 62 mL/min (>90) BUN/Creatinine Ratio 11.5 (10.0-20.0) Serum Glucose 123 mg/dL (74-106) Calcium Level 9.1 mg/dL (8.7-10.4) Total Bilirubin 0.5 mg/dL (0.2-1.0) Aspartate Amino Transferase (AST) 66 U/L (13-40) Alanine Aminotransferase (ALT) 88 U/L (7-40) Alkaline Phosphatase 97 U/L (46-116) Total Protein 6.9 g/dL (5.7-8.2) Albumin 4.0 g/dL (3.2-4.8) Prothrombin Time 10.3 sec (9.3-11.8) Prothrombin Time INR 0.97 (0.9-1.15) Activated Partial Thromboplast Time 28.3 SEC (24.5-34.5) Direct Bilirubin 0.1 mg/dL (<0.3) Hepatitis B Surface Antigen Negative (Negative) Hepatitis C Antibody Negative (Negative) Urine Color Colorless (Yellow) Urine Clarity Clear (Clear) Urine pH 5.5 (5.0-9.0) Urine Specific [place] 1.012 (1.001-1.035) Urine Protein Negative (Negative) Urine Ketones Negative (Negative) Urine Blood Negative /uL (Negative) Urine Nitrite 2+ (Negative) Urine Bilirubin Negative (Negative) Urine Urobilinogen Normal mg/dL (Negative) Urine Leukocyte Esterase 1+ /uL (Negative) Urine RBC <1 /hpf (0 - 4) Urine Microscopic WBC 12 /HPF (0-5) Urine Squamous Epithelial Cells Few /hpf (<5) Urine Bacteria Few /hpf (None Seen) Urine Glucose Normal mg/dL (Normal) Test 05/26/25 09:19 Troponin I High Sensitivity 3 ng/L (</=34) B-Type Natriuretic Peptide 63.60 pg/mL (0-100) Other Laboratory Tests 05/30/25 05:32 Brief Hx & Hospital Course: Admitted for right upper quadrant abdominal pain underwent laparoscopic cholecystectomy for acute cholecystitis treated with the IV fluids pain medications antibiotics postop course uneventful cleared for discharge by the surgeon. Discharged home on Levaquin Flagyl and [place] she will follow up with Dr. Bowden in 10. Tolerating regular diet with stable vital signs at the time of discharge Consults/Reason for consult Surgeon Dr. Bowden Operations or Procedures Laparoscopic cholecystectomy Condition at Discharge: Fair Final Diagnosis/Problems List Acute cholecystitis status post lap lorne by Dr. Bowden on 05/29/2025 UTI Hypokalemia Gallstones Acute abdominal pain Discharge Disposition: Home Discharge Instruct/Medications Diet: Regular Activity: Light activity Follow Up/Referral: Follow up with surgeon Dr. Bowden in 10 days Medications: Levaquin Flagyl [place] Transmitted to [facility] Scheduled Amlodipine Besylate (Amlodipine Besylate), 1 TAB PO DAILY, (Reported) Aspirin (Aspir-Low), 81 MG PO DAILY, (Reported) Levofloxacin Hemihydrate (Levaquin 500 Mg), 1 TAB PO DAILY Levothyroxine Sodium (Synthroid), 1 TAB PO DAILY, (Reported) Losartan Potassium (Losartan Potassium), 100 MG PO DAILY, (Reported) Metronidazole (Flagyl), 1 TAB PO TID Papaya Enzyme (Papaya), Unknown Dose PO DAILY, (Reported) Tramadol Hcl (Tramadol Hcl), 50 MG PO DAILY, (Reported) Scheduled PRN Hydrocodone-Acetaminophen (Hydrocodone Bitartrate/AC 5-325 mg), 1 TAB PO QID PRN Miscellaneous Medications Cholecalciferol (Vitamin D3), 2,000 UNIT PO, (Reported) Cyanocobalamin (B12), 1,000 MCG PO, (Reported) 35 (Time taken for discharge summary 35 minutes) Discharge Statement: "Patient was advised to return to the ER or call 911 if any headaches, dizziness, shortness of breath, chest pain, abdominal pain, bleeding, fevers, or worsening of medical condition. Patient was counseled about treatment plan, medications, possible side effects, patientverbalized understanding. All questions were answered to the best of my ability. This discharge took greater then 30 minutes in planning, reviewing documentation, counseling the patient, and discussing with other team members." ASSESSMENT ASSESSMENT Hospital Course Uneventful Assessment Acute cholecystitis status post lap lorne by Dr. Bowden on 05/29/2025 UTI Hypokalemia Gallstones Acute abdominal pain Date of Service: May 30, 2025 Billing Provider: VIANCA JACKSON MD Common Visit Codes: 60557-[id number] DISCH DAY >30min VIANCA JACKSON MD May 30, 2025 12:35
[2025-05-30 13:00] VITALS: BP 102/50; PULSE 80; RESP 24; TEMP 98.3; O2SAT 94
[2025-05-30 14:27] VITALS: BP 102/50; PULSE 80; RESP 24; TEMP 98.3; O2SAT 95
[2025-05-30] MEDS: INFLUENZA TRIVALENT 2024-2025 0.5 ML INJ IM ONE (15:27)
[2025-05-30] MEDS ORDERED: MELATONIN 5 MG TAB PO ONE (22:00)
== END 2025-05-30 15:50 | disposition home or self-care (01) | DRG 418 ==
LOC: ER 08:16 → OVERFLOW 18:53 → WEST WING 23:32
PROVIDERS: ADMIT Family Medicine; ATTEND Family Medicine
PROC: 0FT44ZZ Resection of Gallbladder, Percutaneous Endoscopic Approach (ICD-10-PCS; principal; 2025-05-29 09:42)
DX: K80.62 Calculus of gallbladder and bile duct with acute cholecystitis without obstruction (principal); N39.0 Urinary tract infection, site not specified; E87.6 Hypokalemia; I10 Essential (primary) hypertension; E78.5 Hyperlipidemia, unspecified; K82.8 Other specified diseases of gallbladder; K66.0 Peritoneal adhesions (postprocedural) (postinfection); K59.00 Constipation, unspecified; E03.9 Hypothyroidism, unspecified; Z79.899 Other long term (current) drug therapy; Z79.82 Long term (current) use of aspirin; Z90.49 Acquired absence of other specified parts of digestive tract; Z90.710 Acquired absence of both cervix and uterus; Z88.8 Allergy status to other drugs, medicaments and biological substances
CPT/HCPCS: 36415; 71045; 74177; 76705; 80048; 80053; 80076; 81001; 83880; 84484; 85025; 85610; 85730; 86803; 86850; 86900; 86901; 87340; 90656; 93005; 96361; 96365; 96375; 99291; G0378; J0131; J1100; J2250; J2405; J2470; J2704; J3490